=== PATIENT | female | born 1990 | race Two or more races ===

== ENCOUNTER 2016-07-17 17:45 | Emergency (ER) | payer MEDICAID ==
[~2016-07-17] VITALS: Ht 162.6 cm; Wt 63.5 kg
[2016-07-17 18:11] VITALS: BP 148/103
[2016-07-17 18:58] LABS: Basophils # (auto) 0 uL; Basophils % (auto) 0.4 % (0.0-2.0); Eosinophils # (auto) 0.1 uL; Eosinophils % (auto) 0.7 % (0.0-7.0); Hematocrit 36.1 % (36.0-46.0); Hemoglobin 12.4 g/dL (12.2-16.2); Lymphocytes # (auto) 1.3 uL; Lymphocytes % (auto) 15.1 % (10.0-50.0); Mean Corpuscular Hgb Conc. 34.4 g/dL (32.0-36.0); Mean Corpuscular Volume 84.1 fL (80.0-100.0); Mean Platelet Volume 10.9 fL (7.4-10.4); Monocytes # (auto) 1.1 uL; Monocytes % (auto) 13.1 % (0.0-12.0); Neutrophils # (auto) 6.2 uL; Neutrophils % (auto) 70.7 % (37.0-80.0); Platelet Count (auto) 226 10^3/uL (140-450); Red Cell Distribution Width 13.4 % (11.6-16.0); White Blood Cell 8.7 10^3/uL (4.4-10.8)
[2016-07-17 19:19] LABS: Albumin 3.8 g/dL (3.4-5.0); BUN/Creatinine Ratio 17.8; Calcium 8.5 mg/dL (8.5-10.1); Potassium 3.4 mmol/L (3.5-5.1)
[2016-07-17 19:22] LABS: Bilirubin, Total 0.4 mg/dL (0.2-1.0); Total Protein 8.6 g/dL (6.4-8.2)
[2016-07-17 19:59] LABS: Urine Bilirubin Negative (Negative); Urine Blood TRACE /uL (Negative); Urine Color Yellow (Yellow); Urine Glucose Normal (Normal); Urine Ketone Negative (Negative); Urine Mucus FEW (None Seen); Urine Nitrite Negative (Negative); Urine RBC 11 /hpf (0 - 4); Urine Squamous Epithelial Cell MOD /hpf (<5); Urine Urobilinogen Normal (Negative)
== END 2016-07-17 21:00 | disposition left against medical advice (07) ==
LOC: ER 17:45
DX: K62.5 Hemorrhage of anus and rectum (principal); Z53.21 Procedure and treatment not carried out due to patient leaving prior to being seen by health care provider
CPT/HCPCS: 36415; 80053; 81001; 81025; 85025

== ENCOUNTER 2024-07-16 22:17 | Inpatient (IN) | payer MEDICAID, OTHER ==
[~2024-07-16] VITALS: Ht 165.1 cm; Wt 86.4 kg
--- NOTE | 2024-07-16 22:29 | ED.PDOC ---
HPI Comments Shirley HPI: Poor Historian. * 34 y/o obese female is [id number] ambulance from home for c/o HTN and palpitations, today. * Patient reports history of HTN and taking her 20mg of Hydralazine daily and most recently this morning before she goes to work. * When patient returned back home she checked her blood pressure and noted elevation of 210/163. * In response to her elevated blood pressure, Patient took her mother's hydralazine dose which is 100 mg instead of 20 mg. * Patient then noted developing palpitations afterwards before calling EMS. * On scene, patient was found tachycardic at an initial rate of 155 and hypertensive at 168/90. * denies any history of anxiety, thyroid disease, or . * Denies any weight loss pills or [id number] herbal medications use * Vitals Temperature: Respiratory rate: SpO2: Heart rate: 155 (initial on scene) Blood pressure: 168/90 (initial on scene) Past Medical History: HTN Past Surgical History: denies REVIEW OF SYSTEMS: CONSTITUTIONAL: Denies acute: fever, diaphoresis, chills, generalized weakness. HEAD: Denies acute: headache, photophobia Eyes: Denies acute: Double vision, vision loss, eye pain, eye discharge. EARS: Denies acute: tinnitus, hearing loss, ear discharge, ear pain, THROAT: Denies acute: sore throat, swelling, difficulty swallowing , pain with swallowing, change in voice. NECK: Denies acute: neck pain, neck swelling, stiff neck. HEART: Denies acute : chest pain, LUNGS: Denies acute: SOB, wheezing, cough, hemoptysis ABDOMEN: Denies acute: abdominal pain, Nausea, Vomiting, diarrhea, melena , hematemesis, hematochezia SKIN: Denies acute: rash, redness, lesions, itchiness. EXTREMITIES: Denies acute: calf pain, numbness, tingling, weakness, denies pain in extremity. Denies acute: Low back pain. Neuro: Denies acute: focal neurological deficit, motor or sensory focal neurological deficit, tremors, seizure like activity, confusion, dizziness, change in mental status, loss of bowel or bladder function, cauda equina like symptoms. : Denies acute: dysuria, hematuria, flank pain, increase in urinary frequency. PSYCH: Denies acute: hallucination, suicidal ideation, homicidal ideation. FEMALE: Denies acute: abnormal vaginal bleeding, foul odor, unusual discharge. PHYSICAL EXAM: General: Mild acute distress, awake and alert. Head: normocephalic, atraumatic. Neck: supple, trachea is midline, no swelling. Throat: Normal phonation. Eyes:, no erythema, no purulent discharge, no proptosis, no icterus. Heart: regular tachycardic, no significant murmur appreciated. Lungs: no apparent respiratory distress, Able to speak in full sentences. No wheezing, no rhonchi, no crackles. No stridors Clear to auscultation bilaterally. Abdomen: non tender to palpation, non distended, soft, no guarding, no rebound, + bowel sounds. Neuro: Awake, Alert, oriented to name, self, situation, follows commands GCS=15. Speech is normal. Skin: no petechia, no purpura, no cyanosis, non-pale, not jaundice. Lower extremities: --no - Pitting edema no deformity, no focal swelling, no calf TTP. Makes eye contact. moves all four extremities. Face: no apparent facial droop. Ambulating in the ED independently. ED COURSE: Time Seen by MD: 22:10 Reviewed Notes: Nurses Notes, Frozen Yogurt Maker Notes, Medications, Allergies Allergies: Coded Allergies: NO KNOWN ALLERGIES (Unverified , 07/17/16) Information Source: Patient, Emergency Med Personnel Mode of Arrival: EMS Past Medical History PAST MEDICAL HISTORY: HTN Past Medical History (Other): obesity Surgical History: Denies all surgeries Family History Family History: Unknown Social History Smoker: Non-Smoker Alcohol: Denies ETOH Use Drugs: Denies Drug Use Lives In: Home Was a procedure done? Was a procedure done?: No CP Differential Dx Differential Diagnosis: A-fib, A-Flutter, Angina, Anxiety / Panic Attack, Atrial Dysrhythmia, Digoxin Toxicity, Electrolyte Disorder, Heart Failure, Hyperthyroidism, Hyperventilation, Hypoxia, MAT, [place], PAC's, PSVT, Pulmonary Embolus, PVC's, Renal Failure, Sinus Tachycardia, Torsades De Pointes, Ventricular Dysrhythmia, V-Fib, V-Tach, WPW X-Ray, Labs, Meds, VS Vital Signs Date Time Temp Pulse Resp B/P (MAP) Pulse Ox O2 Delivery O2 Flow Rate FiO2 07/16/24 23:20 123 07/16/24 22:40 98.2 126 20 132/80 (97) 99 98.2 07/16/24 22:22 129 07/16/24 22:21 97.7 133 20 163/84 (110) 99 97.7 Lab Test 07/16/24 23:23 07/16/24 22:35 07/16/24 22:25 Range/Units Troponin I High Sensitivity 51 *H 19 </=34 ng/L White Blood Count 15.3 H 4.4-10.8 10^3/uL Red Blood Count 4.42 4.0-5.20 10^6/uL Hemoglobin 12.6 12.2-16.2 g/dL Hematocrit 37.3 36.0-46.0 % Mean Corpuscular Volume 84.3 80.0-100.0 fL Mean Corpuscular Hemoglobin 28.5 28.0-32.0 pg Mean Corpuscular Hemoglobin Concent 33.8 32.0-36.0 g/dL Red Cell Distribution Width 14.2 11.8-14.3 % Platelet Count 243 140-450 10^3/uL Mean Platelet Volume 10.1 6.9-10.8 fL Neutrophils (%) (Auto) 71.6 37.0-80.0 % Lymphocytes (%) (Auto) 20.9 10.0-50.0 % Monocytes (%) (Auto) 5.4 0.0-12.0 % Eosinophils (%) (Auto) 1.2 0.0-7.0 % Basophils (%) (Auto) 0.9 0.0-2.0 % Neutrophils # (Auto) 10.9 H 1.6-8.6 10 ^3/uL Lymphocytes # (Auto) 3.2 0.4-5.4 10 ^3/uL Monocytes # (Auto) 0.8 0-1.3 10 ^3/uL Eosinophils # (Auto) 0.2 0-0.8 10 ^3/uL Basophils # (Auto) 0.1 0-0.2 10 ^3/uL Nucleated Red Blood Cells 0.0 % D-Dimer, Quantitative 0.47 0.0-0.49 mg/L FEU Sodium Level 139 136-145 mmol/L Potassium Level 3.4 L 3.5-5.1 mmol/L Chloride Level 109 H 98-107 mmol/L Carbon Dioxide Level 21 20-31 mmol/L Anion Gap 9 5-15 Blood Urea Nitrogen 11 9-23 mg/dL Creatinine 0.79 0.550-1.02 mg/dL Glomerular Filtration Rate Calc 101 >90 mL/min BUN/Creatinine Ratio 13.9 10.0-20.0 Serum Glucose 119 H 74-106 mg/dL Lactic Acid Level 1.6 0.4-2.0 mmol/L Calcium Level 9.8 8.7-10.4 mg/dL Magnesium Level 1.9 1.6-2.6 mg/dL Total Bilirubin 0.3 0.2-1.0 mg/dL Aspartate Amino Transferase (AST) 114 H 13-40 U/L Alanine Aminotransferase (ALT) 186 H 7-40 U/L Alkaline Phosphatase 85 46-116 U/L B-Type Natriuretic Peptide 11.38 0-100 pg/mL Total Protein 8.5 H 5.7-8.2 g/dL Albumin 4.9 H 3.2-4.8 g/dL Thyroid Stimulating Hormone (TSH) 1.86 0.55-4.78 uIU/mL Urine Color Dark-yellow Yellow Urine Clarity Turbid H Clear Urine pH 5.5 5.0-9.0 Urine Specific [place] 1.021 1.001-1.035 Urine Protein 1+ H Negative Urine Ketones Negative Negative Urine Blood Negative Negative /uL Urine Nitrite Negative Negative Urine Bilirubin Negative Negative Urine Urobilinogen Normal Negative mg/dL Urine Leukocyte Esterase Negative Negative /uL Urine RBC 1 0 - 4 /hpf Urine Microscopic WBC 8 H 0-5 /HPF Urine Squamous Epithelial Cells Few <5 /hpf Urine Bacteria Few H None Seen /hpf Urine Hyaline Casts Few 0 - 2 /lpf Urine Mucus Few None Seen Urine Glucose 1+ H Normal mg/dL Urine Test Negative Negative Urine Opiates Screen Neg NEGATIVE Urine Fentanyl Screen Neg NEGATIVE Urine Barbiturates Screen Neg NEGATIVE Urine Phencyclidine Screen Neg NEGATIVE Urine Amphetamines Screen Neg NEGATIVE Urine Benzodiazepines Screen Neg NEGATIVE Urine Cocaine Screen Neg NEGATIVE Urine Cannabinoids Screen Neg NEGATIVE Current Medications Medications (Trade) Dose Ordered Sig/Rimma Route Start Time Stop Time Status Last Admin Sodium Chloride 1,000 ml @ 1,000 mls/hr Q1H ONCE IV 07/16/24 22:30 07/16/24 23:29 DC 07/16/24 22:52 Lorazepam (Ativan Inj) 1 mg ONCE ONCE IV 07/16/24 22:30 07/16/24 22:31 DC 07/16/24 22:[address] [address] Ph: [phone] DIAGNOSTIC IMAGING Diagnostic Imaging Report : [id number] Signed PATIENT: MINDY SOSA ACCT: [id number] UNIT: [id number] : 1990 LOC: ER ROOM / BED: / AGE / SEX: 34 / F ADM STATUS: REG ER SERVICE 23 ORDERING PHYSICIAN: MIRANDA WILSON DO PROCEDURE(s): CXRP - CHEST PORTABLE REASON: tachy ORDER NUMBER(s): [id number], ACCESSION NUMBER(s): [id number] CHEST RADIOGRAPH Indication: tachy Technique: Single frontal view of the chest was obtained COMPARISON: None FINDINGS: A radiopaque foreign body noted overlying mid chest. Lines and Tubes: None Lungs: Clear Pleura: No effusion. No pneumothorax. Cardiomediastinal contours: Unremarkable Bones: Unremarkable IMPRESSION: No cardiopulmonary abnormality. ATED BY: AQUILES RICK MD DICTATED DATE/TIME: 07/16/242321 SIGNED BY: AQUILES RICK MD SIGNED DATE/TIME: 07/16/242321 CC: Time of 1ST Reevaluation: 22:10 Reevaluation 1ST: Unchanged Patient Education/Counseling: Diagnosis, Treatment Family Education/Counseling: No Family Present Comments Patient presented with the above HPI. Cardiac workup was initiated. patient was found with the above mentioned diagnosis. the following medications were ordered: please refer to order lists of meds and tests obtained by myself Dr. Wilson. Patient ED course and VS have been stabilized. Patient has been reassessed in the ED and remained in a stable condition. Pertinent incidental findings were discussed with the patient and/or family. Patient/family voices understanding and is agreeable with plan. Patient has been observed in the ED adequate length of time to insure improvement/stability. Escalation of care considered: Consideration of escalation to observation or admission Patient was ADMITTED to the medicine team for further evaluation and treatment of their presentation. Sepsis workup was initiated. I was told that the admitting team canceled the sepsis workup. All the reports of any imaging studies that were ordered by myself were reviewed by myself. Departure 1 Departure Time of Disposition: 23:27 Impression: Primary Impression: Sepsis Additional Impressions: UTI (urinary tract infection) Tachycardia Hypertension Leukocytosis T wave inversion in EKG Elevated troponin Elevated LFTs Disposition: ADMITTED INPATIENT Admit to: Tele Condition: Guarded Discharged With: Self Critical Care Note Critical Care Time?: Yes (1 hr-critical care time only) Heart Score Heart Score: Heart Score Response (Comments) Value History Slightly Suspicious [address]-Deviation 2 Age <45 0 Risk Factors 1 or 2 risk factors 1 Troponin 1-2 x's Normal limit 1 Total 4 I personally scribed for MIRANDA WILSON DO ([email or web address]) on 07/16/24 at 22:29. Electronically submitted by Luis Castillo ([email or web address]). MIRANDA WILSON DO Jul 16, 2024 22:29
[2024-07-16 22:51] LABS: Basophils # (auto) 0.1 10 ^3/uL (0-0.2); Basophils % (auto) 0.9 % (0.0-2.0); Eosinophils # (auto) 0.2 10 ^3/uL (0-0.8); Eosinophils % (auto) 1.2 % (0.0-7.0); Hematocrit 37.3 % (36.0-46.0); Hemoglobin 12.6 g/dL (12.2-16.2); Lymphocytes # (auto) 3.2 10 ^3/uL (0.4-5.4); Lymphocytes % (auto) 20.9 % (10.0-50.0); Mean Corpuscular Hemoglobin 28.5 pg (28.0-32.0); Mean Corpuscular Hgb Conc. 33.8 g/dL (32.0-36.0); Mean Corpuscular Volume 84.3 fL (80.0-100.0); Monocytes # (auto) 0.8 10 ^3/uL (0-1.3); Monocytes % (auto) 5.4 % (0.0-12.0); Neutrophils # (auto) 10.9 10 ^3/uL (1.6-8.6); Neutrophils % (auto) 71.6 % (37.0-80.0); Platelet Count (auto) 243 10^3/uL (140-450); Red Blood Cells 4.42 10^6/uL (4.0-5.20); Red Cell Distribution Width 14.2 % (11.8-14.3); White Blood Cell 15.3 10^3/uL (4.4-10.8)
[2024-07-16] MEDS: SODIUM CHLORIDE 0.9% 1,000 ML IV ONE (22:52)
[2024-07-16] MEDS: LORazepam 2MG/ML-1ML VIAL IV ONE (22:52)
[2024-07-16 22:56] LABS: Urine Bacteria FEW /hpf (None Seen); Urine Blood Negative /uL (Negative); Urine Clarity Turbid (Clear); Urine Color Dark-Yellow (Yellow); Urine Hyaline Cast FEW /lpf (0 - 2); Urine Mucus FEW (None Seen); Urine Protein, UAD 1+ (Negative); Urine Specific Gravity 1.021 (1.001-1.035); Urine Squamous Epithelial Cell FEW /hpf (<5); Urine Urobilinogen Normal (Negative); Urine WBC 8 /HPF (0-5); Urine pH 5.5 (5.0-9.0)
[2024-07-16 23:05] LABS: Alkaline Phosphatase 85 U/L (46-116); Anion Gap 9 (5-15); BUN/Creatinine Ratio 13.9 (10.0-20.0); Bilirubin, Total 0.3 mg/dL (0.2-1.0); Blood Urea Nitrogen 11 mg/dL (9-23); Calcium 9.8 mg/dL (8.7-10.4); Carbon Dioxide 21 mmol/L (20-31); Magnesium 1.9 mg/dL (1.6-2.6); Sodium 139 mmol/L (136-145)
[2024-07-16 23:06] LABS: Alanine Aminotransferase 186 U/L (7-40); Albumin 4.9 g/dL (3.2-4.8); Aspartate Aminotransferase 114 U/L (13-40); Chloride 109 mmol/L (98-107); Glucose 119 mg/dL (74-106); Potassium 3.4 mmol/L (3.5-5.1); Total Protein 8.5 g/dL (5.7-8.2)
[2024-07-16 23:10] LABS: Amphetamine Screen, Urine Neg (NEGATIVE); Barbiturate Scree,Urine Neg (NEGATIVE); Benzodiazephine Screen, Urine Neg (NEGATIVE); Cannabinoid Screen, Urine Neg (NEGATIVE); Cocaine Screen, Urine Neg (NEGATIVE); Opiate Scree,Urine Neg (NEGATIVE); Phencyclidine Screen, Urine Neg (NEGATIVE)
[2024-07-16] MEDS: cefTRIAXone 1GM/50ML D5W 50 ML IV ONE (23:15)
--- NOTE | 2024-07-16 23:24 | DVH ---
CHEST RADIOGRAPH Indication: tachy Technique: Single frontal view of the chest was obtained COMPARISON: None FINDINGS: A radiopaque foreign body noted overlying mid chest. Lines and Tubes: None Lungs: Clear Pleura: No effusion. No pneumothorax. Cardiomediastinal contours: Unremarkable Bones: Unremarkable IMPRESSION: No cardiopulmonary abnormality.
[2024-07-17] MEDS ORDERED: NITROGLYCERIN 0.4 MG SL TAB SL PRN
[2024-07-17] MEDS ORDERED: MORPHINE SULFATE INJ 2 MG/ml SYRG IV PRN
[2024-07-17 00:30] VITALS: PULSE 127; RESP 20; O2SAT 95
--- NOTE | 2024-07-17 00:39 | DVHHP2 ---
History of Present Illness Reason for Visit: Palpitations History of Present Illness 34-year-old female presents for evaluation of palpitations. Patient reports earlier today having high blood pressure in the 200s. She developed mild chest pain. She states that she accidentally took one of her mom's hydralazine. She reports that shortly after she felt palpitations and felt blushed. Denies shortness or breath. No other acute complaints reported. Past Medical History Hypertension Past Surgical History Denies Family History Noncontributory Smoke: No ALCOHOL: none Drugs: None Lives: with Family Review of Systems Review of Systems Review of systems are currently negative otherwise addressed in HPI. Allergies: Coded Allergies: NO KNOWN ALLERGIES (Unverified , 07/17/16) Medications Current Medications Medications Dose Ordered Sig/Rimma Route Start Time Stop Time Status Last Admin Dose Admin Nitroglycerin 0.4 mg Q5MINP PRN SL 07/17/24 00:00 Morphine Sulfate 2 mg Q30M PRN IV 07/17/24 00:00 Lisinopril 20 mg DAILY PO 07/17/24 10:00 Exam Vital Signs Vital Signs Date Time Temp Pulse Resp B/P (MAP) Pulse Ox O2 Delivery O2 Flow Rate FiO2 07/17/24 00:30 127 20 95 Room Air* 0 21 07/16/24 22:40 98.2 132/80 (97) 98.2 Exam Gen: 34-year-old female in mild distress Skin: Warm, dry, normal color and texture, no rash. HEENT: Normocephalic atraumatic, mucous membranes moist and pink. Neck: Cervical and supraclavicular nodes normal without enlargement, trachea is midline, thyroid gland is normal without masses. Pulmonary: Clear to auscultation and percussion bilaterally. Cardiac: Sinus tachycardia Abdomen: Soft, nontender, nondistended, bowel sounds present all 4 quadrants, no guarding, no rigidity, no organomegaly. Extremities: No cyanosis, clubbing, no edema Neuro: Cranial nerves II through XII grossly intact, normal affect and speech, no focal motor deficits. Labs/Xrays ORDERING PHYSICIAN: MIRANDA WILSON DO PROCEDURE(s): CXRP - CHEST PORTABLE REASON: tachy ORDER NUMBER(s): [id number], ACCESSION NUMBER(s): [id number] CHEST RADIOGRAPH Indication: tachy Technique: Single frontal view of the chest was obtained COMPARISON: None FINDINGS: A radiopaque foreign body noted overlying mid chest. Lines and Tubes: None Lungs: Clear Pleura: No effusion. No pneumothorax. Cardiomediastinal contours: Unremarkable Bones: Unremarkable IMPRESSION: No cardiopulmonary abnormality. Labs Test 07/16/24 23:23 07/16/24 22:35 07/16/24 22:25 Range/Units Troponin I High Sensitivity 51 *H </=34 ng/L White Blood Count 15.3 H 4.4-10.8 10^3/uL Red Blood Count 4.42 4.0-5.20 10^6/uL Hemoglobin 12.6 12.2-16.2 g/dL Hematocrit 37.3 36.0-46.0 % Mean Corpuscular Volume 84.3 80.0-100.0 fL Mean Corpuscular Hemoglobin 28.5 28.0-32.0 pg Mean Corpuscular Hemoglobin Concent 33.8 32.0-36.0 g/dL Red Cell Distribution Width 14.2 11.8-14.3 % Platelet Count 243 140-450 10^3/uL Mean Platelet Volume 10.1 6.9-10.8 fL Neutrophils (%) (Auto) 71.6 37.0-80.0 % Lymphocytes (%) (Auto) 20.9 10.0-50.0 % Monocytes (%) (Auto) 5.4 0.0-12.0 % Eosinophils (%) (Auto) 1.2 0.0-7.0 % Basophils (%) (Auto) 0.9 0.0-2.0 % Neutrophils # (Auto) 10.9 H 1.6-8.6 10 ^3/uL Lymphocytes # (Auto) 3.2 0.4-5.4 10 ^3/uL Monocytes # (Auto) 0.8 0-1.3 10 ^3/uL Eosinophils # (Auto) 0.2 0-0.8 10 ^3/uL Basophils # (Auto) 0.1 0-0.2 10 ^3/uL Nucleated Red Blood Cells 0.0 % D-Dimer, Quantitative 0.47 0.0-0.49 mg/L FEU Sodium Level 139 136-145 mmol/L Potassium Level 3.4 L 3.5-5.1 mmol/L Chloride Level 109 H 98-107 mmol/L Carbon Dioxide Level 21 20-31 mmol/L Anion Gap 9 5-15 Blood Urea Nitrogen 11 9-23 mg/dL Creatinine 0.79 0.550-1.02 mg/dL Glomerular Filtration Rate Calc 101 >90 mL/min BUN/Creatinine Ratio 13.9 10.0-20.0 Serum Glucose 119 H 74-106 mg/dL Lactic Acid Level 1.6 0.4-2.0 mmol/L Calcium Level 9.8 8.7-10.4 mg/dL Magnesium Level 1.9 1.6-2.6 mg/dL Total Bilirubin 0.3 0.2-1.0 mg/dL Aspartate Amino Transferase (AST) 114 H 13-40 U/L Alanine Aminotransferase (ALT) 186 H 7-40 U/L Alkaline Phosphatase 85 46-116 U/L B-Type Natriuretic Peptide 11.38 0-100 pg/mL Total Protein 8.5 H 5.7-8.2 g/dL Albumin 4.9 H 3.2-4.8 g/dL Thyroid Stimulating Hormone (TSH) 1.86 0.55-4.78 uIU/mL Urine Color Dark-yellow Yellow Urine Clarity Turbid H Clear Urine pH 5.5 5.0-9.0 Urine Specific [place] 1.021 1.001-1.035 Urine Protein 1+ H Negative Urine Ketones Negative Negative Urine Blood Negative Negative /uL Urine Nitrite Negative Negative Urine Bilirubin Negative Negative Urine Urobilinogen Normal Negative mg/dL Urine Leukocyte Esterase Negative Negative /uL Urine RBC 1 0 - 4 /hpf Urine Microscopic WBC 8 H 0-5 /HPF Urine Squamous Epithelial Cells Few <5 /hpf Urine Bacteria Few H None Seen /hpf Urine Hyaline Casts Few 0 - 2 /lpf Urine Mucus Few None Seen Urine Glucose 1+ H Normal mg/dL Urine Test Negative Negative Urine Opiates Screen Neg NEGATIVE Urine Fentanyl Screen Neg NEGATIVE Urine Barbiturates Screen Neg NEGATIVE Urine Phencyclidine Screen Neg NEGATIVE Urine Amphetamines Screen Neg NEGATIVE Urine Benzodiazepines Screen Neg NEGATIVE Urine Cocaine Screen Neg NEGATIVE Urine Cannabinoids Screen Neg NEGATIVE Assessment/Plan Assessment/Plan Assessment Hypertensive urgency Mild troponin elevation, demand ischemia Hypokalemia Plan Admit the patient to telemetry to the hospitalist Echocardiogram pending As needed antihypertensives Continue treatment per orders. Plan discussed with: Patient My Orders Orders - AMIRA CAR Procedure Category Date Status Time Admit ADMIT 07/16/24 Transmitted 23:[address] [facility] 07/17/24 In Process Sublingual (Ntrostat 00:[address] [facility] 07/17/24 In Process Injection 00:00 Stat Ekg For Chest [facility] 07/16/24 In Process Pain 23:51 Notify Of Changes [facility] 07/16/24 In Process From Base 23:51 Axle Turner For [facility] 07/16/24 In Process 24 Hours 23:51 Emergency Dysrhythmia [facility] 07/16/24 In Process Protocol 23:51 Rhythm Strips Once [facility] 07/16/24 In Process Every Shift 23:51 Oxygen By Nasal RT 07/16/24 Transmitted Cannula 23:[address] [facility] 07/17/24 In Process (Zestril Tablet) 10:00 Basic Metabolic Panel LAB 07/18/24 Verified 04:00 Potassium Er Tablet [facility] 07/17/24 Verified (Klor-Con Tablet) 00:[address] [facility] 07/17/24 Verified (Zofran) 00:45 Complete Blood Count LAB 07/18/24 Verified 04:00 Cardiac DIET 07/17/24 Verified Diet-2gna,Lofat,Lochol Breakfast Echo 2d Mode Cardiac US 07/17/24 Verified DOP 00:32 Condition: Fair [facility] 07/17/24 Verified 00:[address] [facility] 07/17/24 Verified (Tylenol Tablet) 00:45 Bedrest With Bathroom [facility] 07/17/24 Verified Privileg 00:32 Date of Service: Jul 16, 2024 Billing Provider: AMIRA CAR Common Visit Codes: [id number] INP/OBS CARE (HIGH) AMIRA CAR Jul 17, 2024 00:39
[2024-07-17] MEDS ORDERED: ONDANSETRON HCL 4 MG/2 ML VIAL IV PRN (00:45)
[2024-07-17] MEDS ORDERED: ACETAMINOPHEN 325 MG TAB PO PRN (00:45)
[2024-07-17] MEDS: FAMOTIDINE (10MG/ML) 2ML VL IV ONE (01:07)
[2024-07-17] MEDS: POTASSIUM CHL 20 Meq TABLET PO ONE (01:07)
[2024-07-17] MEDS: LABETALOL HCL 20 MG/4 ML VL IV ONE (01:08)
--- NOTE | 2024-07-17 05:30 | ECG ---
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
--- NOTE | 2024-07-17 05:31 | ECG ---
[facility] Test Date: 2024-07-17 Test Time: 01:17:39 Pat Name: MINDY SOSA Department: ED Room: [address] [place] [address] A Gender: F Neon Sign Mechanic: LULÚ : 1990 Requested By: MIRANDA WILSON Order Number: [id number] Reading MD: Abhijeet Bacon Measurements Intervals [place] Rate: 113 P: 54 DC: 157 QRS: 32 QRSD: 98 T: -1 QT: 348 QTc: 478 Interpretive Statements Sinus tachycardia Borderline repolarization abnormality Borderline prolonged QT interval Electronically Signed On 07-18-2024 22:37:04 PDT by Abhijeet Bacon Please click the below link to view image of tracing.
--- NOTE | 2024-07-17 05:31 | ECG ---
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
[2024-07-17 08:44] LABS: Basophils # (auto) 0.1 10 ^3/uL (0-0.2); Basophils % (auto) 0.6 % (0.0-2.0); Eosinophils # (auto) 0.1 10 ^3/uL (0-0.8); Eosinophils % (auto) 0.7 % (0.0-7.0); Hematocrit 33.6 % (36.0-46.0); Hemoglobin 11.6 g/dL (12.2-16.2); Lymphocytes # (auto) 2.2 10 ^3/uL (0.4-5.4); Lymphocytes % (auto) 21.7 % (10.0-50.0); Mean Corpuscular Hemoglobin 28.8 pg (28.0-32.0); Mean Corpuscular Hgb Conc. 34.4 g/dL (32.0-36.0); Mean Corpuscular Volume 83.8 fL (80.0-100.0); Monocytes # (auto) 0.6 10 ^3/uL (0-1.3); Monocytes % (auto) 5.6 % (0.0-12.0); Neutrophils # (auto) 7.1 10 ^3/uL (1.6-8.6); Neutrophils % (auto) 71.4 % (37.0-80.0); Nucleated Red Blood Cells % 0.1 %; Platelet Count (auto) 225 10^3/uL (140-450); Red Blood Cells 4.01 10^6/uL (4.0-5.20); Red Cell Distribution Width 14.1 % (11.8-14.3)
[2024-07-17 09:06] LABS: Alkaline Phosphatase 80 U/L (46-116); Anion Gap 8 (5-15); BUN/Creatinine Ratio 12.2 (10.0-20.0); Calcium 9.4 mg/dL (8.7-10.4); Carbon Dioxide 24 mmol/L (20-31); Potassium 3.9 mmol/L (3.5-5.1); Sodium 141 mmol/L (136-145)
[2024-07-17 09:07] LABS: Albumin 4.6 g/dL (3.2-4.8); Bilirubin, Total 0.4 mg/dL (0.2-1.0)
[2024-07-17 09:08] LABS: Alanine Aminotransferase 175 U/L (7-40); Aspartate Aminotransferase 96 U/L (13-40); Blood Urea Nitrogen 9 mg/dL (9-23); Chloride 109 mmol/L (98-107); Glucose 107 mg/dL (74-106)
[2024-07-17] MEDS: LISINOPRIL 20 MG TAB PO SCH (10:28)
--- NOTE | 2024-07-17 11:16 | DVHINCON2 ---
PATRIA CHAVES [facility] 07/17/24 1116: Date Seen: Jul 17, 2024 Referring Physician MD Eugene Reason for Consultation Palpitations History of Present Illness This is a 34-year-old female who presented to the emergency room via EMS with a chief complaint of palpitations. The patient with a history of hypertension compliant on lisinopril 20 mg q.d. found her systolic blood pressure in the 210s mmHg last night for which she took her mother's hydralazine 100 mg p.o. x 1. Soon after she laid down on bed experiencing tingling of her feet extending to her head and associated with facial flushing and palpitations for which she called 911. Blood glucose level at the scene was 132 ng/dL. Per patient, she believes her blood pressure dropped too low causing the aforementioned symptoms. At time of assessment she was found in a sinus tachycardia rhythm in the 110s bpm denying any cardiac symptoms. Denies the intake of caffeinated drinks, energy drinks, or illicit drug use. States she is well hydrated. Multiple 12 lead electrocardiograms x3 revealed a sinus tachycardia rhythm up to the 120s bpm with T-wave inversion to lead three and early repolarization changes. Sig nificant medical history includes hypertension, fatty liver, and obesity. Past Medical History Past medical history reviewed. No other significant than mentioned above. Past Surgical History Past surgical history reviewed. No other significant than mentioned above. Family History Family history reviewed. Significant for mother with CAD including PCI with stents. Social History Denies the use of illicit drugs, alcohol, or tobacco use. Allergies: Coded Allergies: NO KNOWN ALLERGIES (Unverified , 07/17/16) Home Meds Home medications reviewed. Current Medications Current Medications Medications (Trade) Dose Ordered Sig/Rimma Route PRN Reason Start Time Stop Time Status Last Admin Nitroglycerin (Ntrostat Sublingual) 0.4 mg Q5MINP PRN SL FOR CHEST PAIN 07/17/24 00:00 Morphine Sulfate 2 mg Q30M PRN IV FOR CHEST PAIN 07/17/24 00:00 Lisinopril (Zestril Tablet) 20 mg DAILY PO 07/17/24 10:00 07/17/24 10:28 Ondansetron HCl (Zofran) 4 mg Q4HP PRN IV NAUSEA / VOMITING 07/17/24 00:45 Acetaminophen (Tylenol Tablet) 650 mg Q6HP PRN PO PAIN SCALE 1-3 OR TEMP>100.4 07/17/24 00:45 Review of Systems Constitutional: No symptom reported Ears, Nose, & Throat: No symptom reported Eyes: No symptom reported Neurological: No symptoms reported Pulmonary/Respiratory: No symptom reported Cardiovascular: Palpitations Gastrointestinal: No symptom reported Genitourinary: No symptom reported Musculoskeletal: No symptom reported Skin: No symptom reported Psychiatric: No symptom reported Endocrine: No symptom reported Hemotologic/Lymphatic: No symptom reported Vital Signs Vital Signs Date Time Temp Pulse Resp B/P (MAP) Pulse Ox O2 Delivery O2 Flow Rate FiO2 07/17/24 10:28 141/95 07/17/24 10:00 107 16 98 07/17/24 00:30 Room Air* 0 21 07/16/24 22:40 98.2 98.2 Physical Exam General Appearance: Cooperative. Well developed. Obese. In no acute distress Head Exam: Normal inspection Neck Exam: Normal inspection. Non-tender. Normal alignment Pulmonary/Respiratory: Chest non-tender. Clear bilateral breath sounds Cardiovascular/Chest: Regular rate and rhythm. S1, S2. Sinus tachycardia. T- wave inversion to lead three. No murmurs. No JVD. Peripheral Pulses: 2+ Radial (R). 2+ Radial (L). 2+ Pedal (R). 2+ Pedal (L) Abdominal Exam: Normal bowel sounds. Soft. Nontender. No hepatospenomegaly. No masses Ankle Exam: Negative ankle edema Lower extremities: Negative lower extremity edema Neuro/Mental Status: A&O x4. Coherent Thoughts/Psych: Normal thought pattern. Appropriate mood and affect. Good judgement and insight Appearance: In no acute distress Skin Exam: Normal inspection. Normal color. Warm. Dry Labs/Diagnostic Data Labs Test 07/17/24 10:44 07/17/24 08:35 07/16/24 22:35 07/16/24 22:25 Range/Units White Blood Count 10.0 # 4.4-10.8 10^3/uL Red Blood Count 4.01 4.0-5.20 10^6/uL Hemoglobin 11.6 L 12.2-16.2 g/dL Hematocrit 33.6 L 36.0-46.0 % Mean Corpuscular Volume 83.8 80.0-100.0 fL Mean Corpuscular Hemoglobin 28.8 28.0-32.0 pg Mean Corpuscular Hemoglobin Concent 34.4 32.0-36.0 g/dL Red Cell Distribution Width 14.1 11.8-14.3 % Platelet Count 225 140-450 10^3/uL Mean Platelet Volume 9.7 6.9-10.8 fL Neutrophils (%) (Auto) 71.4 37.0-80.0 % Lymphocytes (%) (Auto) 21.7 10.0-50.0 % Monocytes (%) (Auto) 5.6 0.0-12.0 % Eosinophils (%) (Auto) 0.7 0.0-7.0 % Basophils (%) (Auto) 0.6 0.0-2.0 % Neutrophils # (Auto) 7.1 1.6-8.6 10 ^3/uL Lymphocytes # (Auto) 2.2 0.4-5.4 10 ^3/uL Monocytes # (Auto) 0.6 0-1.3 10 ^3/uL Eosinophils # (Auto) 0.1 0-0.8 10 ^3/uL Basophils # (Auto) 0.1 0-0.2 10 ^3/uL Nucleated Red Blood Cells 0.1 % Sodium Level 141 136-145 mmol/L Potassium Level 3.9 3.5-5.1 mmol/L Chloride Level 109 H 98-107 mmol/L Carbon Dioxide Level 24 20-31 mmol/L Anion Gap 8 5-15 Blood Urea Nitrogen 9 9-23 mg/dL Creatinine 0.74 0.550-1.02 mg/dL Glomerular Filtration Rate Calc 109 >90 mL/min BUN/Creatinine Ratio 12.2 10.0-20.0 Serum Glucose 107 H 74-106 mg/dL Calcium Level 9.4 8.7-10.4 mg/dL Total Bilirubin 0.4 0.2-1.0 mg/dL Aspartate Amino Transferase (AST) 96 H 13-40 U/L Alanine Aminotransferase (ALT) 175 H 7-40 U/L Alkaline Phosphatase 80 46-116 U/L Total Protein 8.0 5.7-8.2 g/dL Albumin 4.6 3.2-4.8 g/dL D-Dimer, Quantitative 0.47 0.0-0.49 mg/L FEU Lactic Acid Level 1.6 0.4-2.0 mmol/L Magnesium Level 1.9 1.6-2.6 mg/dL B-Type Natriuretic Peptide 11.38 0-100 pg/mL Thyroid Stimulating Hormone (TSH) 1.86 0.55-4.78 uIU/mL Urine Color Dark-yellow Yellow Urine Clarity Turbid H Clear Urine pH 5.5 5.0-9.0 Urine Specific [place] 1.021 1.001-1.035 Urine Protein 1+ H Negative Urine Ketones Negative Negative Urine Blood Negative Negative /uL Urine Nitrite Negative Negative Urine Bilirubin Negative Negative Urine Urobilinogen Normal Negative mg/dL Urine Leukocyte Esterase Negative Negative /uL Urine RBC 1 0 - 4 /hpf Urine Microscopic WBC 8 H 0-5 /HPF Urine Squamous Epithelial Cells Few <5 /hpf Urine Bacteria Few H None Seen /hpf Urine Hyaline Casts Few 0 - 2 /lpf Urine Mucus Few None Seen Urine Glucose 1+ H Normal mg/dL Urine Test Negative Negative Urine Opiates Screen Neg NEGATIVE Urine Fentanyl Screen Neg NEGATIVE Urine Barbiturates Screen Neg NEGATIVE Urine Phencyclidine Screen Neg NEGATIVE Urine Amphetamines Screen Neg NEGATIVE Urine Benzodiazepines Screen Neg NEGATIVE Urine Cocaine Screen Neg NEGATIVE Urine Cannabinoids Screen Neg NEGATIVE Assessment Palpitations rule out cardiac arrhythmias Hypertensive emergency, resolved NSTEMI, likely type 2 secondary to above Rule out structural heart disease Obesity Plan/Recommendation (Dr. Ellison) The patient with palpitations and associated sinus tachycardia presents with 12- lead electrocardiograms revealing a sinus rhythm without evidence of ischemia or arrhythmias. Sinus tachycardia could be secondary to vasodilator use which could cause reflex tachycardia as a side effect due to the body's compensatory response as she self-administered hydralazine 100 mg at once. Other etiologies include infectious processes, sleep apnea, or anxiety. Consider an event monitor and/or treadmill stress test as outpatient if deemed to be necessary. In the setting of an unremarkable transthoracic echocardiogram there is no further cardiac workup indicated at this time. Kindly call if in need to re-consult. Thank you for allowing us to participate in this patient's care. This medical document was created using an electronic medical record system with voice recognition software and computerized dictation system. Although this document has been carefully reviewed, there might still be some phonetic and typographical errors. Occasional wrong-word or ``sound-alike substitutions may have occurred due to the inherent limitations of voice recognition software. These areas are purely typographical due to imperfections of the software programs and do not reflect any compromise in the patient's medical care. Please read the chart carefully and recognize, using context, where these substitutions have occurred. Plan discussed with: Patient, Other NYHA Physical activity limitations: NA Date of Service: Jul 17, 2024 Billing Provider: PATRIA CHAVES Cardiology Common Codes: [id number] INP/OBS CARE (High) MI PIERRE DO 07/17/24 1945: Date Seen: Jul 17, 2024 Allergies: Coded Allergies: NO KNOWN ALLERGIES (Unverified , 07/17/16) Plan/Recommendation The patient was seen and discussed with Patria Chaves NP. I agree with her Assessment and Plan, which was formulated with me. Plan discussed with: Patient Date of Service: Jul 17, 2024 Billing Provider: MI PIERRE DO Cardiology Common Codes: [id number] INP/OBS CARE (High) PATRIA CHAVES Jul 17, 2024 11:16 MI PIERRE DO Jul 17, 2024 19:45
[2024-07-17] MEDS: SODIUM CHLORIDE 0.9% 1,000 ML IV ONE (12:28)
[2024-07-17] MEDS: cefTRIAXone 1GM/50ML D5W 50 ML IV ONE (12:28)
--- NOTE | 2024-07-17 14:55 | DVHSR ---
APPROVED REPORT EXAM: Two-dimensional and M-mode echocardiogram with Doppler and color Doppler. Blood Pressure: 136/86 mmHg INDICATION hypertensive urgency RISK FACTORS Obesity: Height: 5'5, Weight: 190 DIMENSIONS LVDd4.9 (3.8-5.7cm)LA (2D)3.1 (1.9-4.0cm)Aortic Root3.2 (2.0-3.7cm) LVDs3.5 (2.5-4.0cm)LA (MM) (1.9-4.0cm)Aortic Cusp Exc1.7 (1.5-2.0cm) EF (%) 55.0 (55-70%)Rt. Atrium3.6 (1.9-4.0cm)Asc. Aorta cm IVSd0.8 (0.7-1.1cm)RV (D)3.1 (1.8-2.4cm) PWd1.0 (0.7-1.1cm) Mitral Valve MitralMitral Stenosis E wave0.95m/sMV Mean GR.mmHg A wave1.40m/sMV Peak GR.mmHg E/A ratio0.72D MVAcm2 Aortic Valve Aortic ValveAortic Stenosis V11.15m/[place] Mean GR.8mmHg V21.74m/[place] Peak GR.12mmHg LVOT Diameter1.9 (1.8-2.4cm)Doppler AVA1.87cm2 Other Information Quality : Technically LimitedRhythm : Technically limited study due to body habitus. Conclusion Normal biventricular size and systolic function. LVEF 65-70%. Normal wall motion. No significant valvular disease. Normal IVC. No pericardial effusion.
[2024-07-17] MEDS: MAGNESIUM SULFATE 1GM/100ML 100 ML IV ONE (14:57)
--- NOTE | 2024-07-17 15:27 | DVHPNRES ---
Progress Note Date Seen: Jul 17, 2024 Resident Creating Document: KATERINA REYNAGA RESIDENT Has the PT tested + for MRSA If YES, has PT been informed?: No Medical Necessity Reason Pt with a Central, PICC or Fol: No Subjective Review of Systems 34-year-old female with past medical history of hypertension, fatty liver, and obesity who presented to the emergency room with a chief complaint of palpitations. The patient with a history of hypertension compliant on lisinopril 20 mg q.d. found her systolic blood pressure in the 210s mmHg last night for which she took her mother's hydralazine 100 mg p.o. x 1. Soon after she developed facial flushing and palpitations. per patient, she believes her blood pressure dropped too low causing these symptoms, she reports having similar episodes of palpitations in the past but never like this. At time of assessment she was found in a sinus tachycardia rhythm in the 110s bpm denying any cardiac symptoms. Denies the intake of caffeinated drinks, energy drinks, or illicit drug use. Multiple 12 lead electrocardiograms x3 revealed a sinus tachycardia rhythm up to the 120s bpm with T-wave inversion to lead three. follow up on echo results. troponins trending up. Review of Systems: HEENT:Normal, CVS:Normal, RESPIRATORY:Normal, GI:Normal, :Normal, MSK:Normal, NEURO:Normal Objective vital signs Vital Sign Date Time Temp Pulse Resp B/P (MAP) Pulse Ox O2 Delivery O2 Flow Rate FiO2 07/17/24 10:28 141/95 07/17/24 10:00 107 16 98 07/17/24 00:30 Room Air* 0 21 07/16/24 22:40 98.2 98.2 Total Intake and Output 07/16/24 07/16/24 07/17/24 15:00 23:00 07:00 Intake Total 1000 ml Balance 1000 ml medications Current Medications Medications Dose Ordered Sig/Rimma Route Start Time Stop Time Status Last Admin Dose Admin Nitroglycerin 0.4 mg Q5MINP PRN SL 07/17/24 00:00 Morphine Sulfate 2 mg Q30M PRN IV 07/17/24 00:00 Lisinopril 20 mg DAILY PO 07/17/24 10:00 07/17/24 10:28 20 MG Ondansetron HCl 4 mg Q4HP PRN IV 07/17/24 00:45 Acetaminophen 650 mg Q6HP PRN PO 07/17/24 00:45 Examination: GENERAL:Normal, HEENT:Normal, NECK:Normal, LUNGS:Normal, CVS:Abnormal, ABDOMEN:Normal, MSK:Normal, SKIN:Normal, NEURO:Normal, :Normal laboratory and microbiology Laboratory Tests 07/17/24 08:35 Test 07/17/24 08:35 Range/Units Serum Glucose 107 H 74-106 mg/dL Problem List/Assessment/Plan Problem List/Assessment/Plan #Palpitationsrule out ?cardiac arrhythmias #Hypertensive emergency, resolved #NSTEMI, likely type 2 secondary to above #Rule out structural heart disease #Type 1 Obesity #Asymtomatic bacteriuria #Anxiety Plan/Recommendation -admit to telemetry -EKG unremarkable -Cardiology consult -lisinopril 20 mg daily -cardiac diet case discussed with Dr. Jin goals of care discussed with the patient fro 31 min code status: full code Plan discussed with: Patient My Orders My Orders Orders - KATERINA REYNAGA Procedure Category Date Status Time Electrocardigram EKG 07/17/24 Logged 10:23 Electrocardigram EKG 07/17/24 Logged 11:23 Date of Service: Jul 17, 2024 Billing Provider: YRN JIN MD Common Visit Codes: [id number] INP/OBS CARE(HIGH) KATERINA REYNAGA Jul 17, 2024 15:27 YRN JIN MD Jul 19, 2024 08:30
[2024-07-17 21:14] VITALS: BP 133/92; PULSE 103; RESP 13; TEMP 97.8; O2SAT 95
--- NOTE | 2024-07-18 06:54 | DVHDSRES ---
Discharge Summary Date of Admission Resident Creating Document: KATERINA RYENAGA RESIDENT Jul 16, 2024 at 23:51 Date of Discharge: Jul 17, 2024 Labs/Diagnostic Data: Laboratory Results Test 07/17/24 13:27 07/17/24 08:35 07/16/24 22:35 07/16/24 22:25 Troponin I High Sensitivity 683 ng/L (</=34) White Blood Count 10.0 10^3/uL (4.4-10.8) Red Blood Count 4.01 10^6/uL (4.0-5.20) Hemoglobin 11.6 g/dL (12.2-16.2) Hematocrit 33.6 % (36.0-46.0) Mean Corpuscular Volume 83.8 fL (80.0-100.0) Mean Corpuscular Hemoglobin 28.8 pg (28.0-32.0) Mean Corpuscular Hemoglobin Concent 34.4 g/dL (32.0-36.0) Red Cell Distribution Width 14.1 % (11.8-14.3) Platelet Count 225 10^3/uL (140-450) Mean Platelet Volume 9.7 fL (6.9-10.8) Neutrophils (%) (Auto) 71.4 % (37.0-80.0) Lymphocytes (%) (Auto) 21.7 % (10.0-50.0) Monocytes (%) (Auto) 5.6 % (0.0-12.0) Eosinophils (%) (Auto) 0.7 % (0.0-7.0) Basophils (%) (Auto) 0.6 % (0.0-2.0) Neutrophils # (Auto) 7.1 10 ^3/uL (1.6-8.6) Lymphocytes # (Auto) 2.2 10 ^3/uL (0.4-5.4) Monocytes # (Auto) 0.6 10 ^3/uL (0-1.3) Eosinophils # (Auto) 0.1 10 ^3/uL (0-0.8) Basophils # (Auto) 0.1 10 ^3/uL (0-0.2) Nucleated Red Blood Cells 0.1 % Sodium Level 141 mmol/L (136-145) Potassium Level 3.9 mmol/L (3.5-5.1) Chloride Level 109 mmol/L (98-107) Carbon Dioxide Level 24 mmol/L (20-31) Anion Gap 8 (5-15) Blood Urea Nitrogen 9 mg/dL (9-23) Creatinine 0.74 mg/dL (0.550-1.02) Glomerular Filtration Rate Calc 109 mL/min (>90) BUN/Creatinine Ratio 12.2 (10.0-20.0) Serum Glucose 107 mg/dL (74-106) Calcium Level 9.4 mg/dL (8.7-10.4) Total Bilirubin 0.4 mg/dL (0.2-1.0) Aspartate Amino Transferase (AST) 96 U/L (13-40) Alanine Aminotransferase (ALT) 175 U/L (7-40) Alkaline Phosphatase 80 U/L (46-116) Total Protein 8.0 g/dL (5.7-8.2) Albumin 4.6 g/dL (3.2-4.8) D-Dimer, Quantitative 0.47 mg/L FEU (0.0-0.49) Lactic Acid Level 1.6 mmol/L (0.4-2.0) Magnesium Level 1.9 mg/dL (1.6-2.6) B-Type Natriuretic Peptide 11.38 pg/mL (0-100) Thyroid Stimulating Hormone (TSH) 1.86 uIU/mL (0.55-4.78) Urine Color Dark-yellow (Yellow) Urine Clarity Turbid (Clear) Urine pH 5.5 (5.0-9.0) Urine Specific [place] 1.021 (1.001-1.035) Urine Protein 1+ (Negative) Urine Ketones Negative (Negative) Urine Blood Negative /uL (Negative) Urine Nitrite Negative (Negative) Urine Bilirubin Negative (Negative) Urine Urobilinogen Normal mg/dL (Negative) Urine Leukocyte Esterase Negative /uL (Negative) Urine RBC 1 /hpf (0 - 4) Urine Microscopic WBC 8 /HPF (0-5) Urine Squamous Epithelial Cells Few /hpf (<5) Urine Bacteria Few /hpf (None Seen) Urine Hyaline Casts Few /lpf (0 - 2) Urine Mucus Few (None Seen) Urine Glucose 1+ mg/dL (Normal) Urine Test Negative (Negative) Urine Opiates Screen Neg (NEGATIVE) Urine Fentanyl Screen Neg (NEGATIVE) Urine Barbiturates Screen Neg (NEGATIVE) Urine Phencyclidine Screen Neg (NEGATIVE) Urine Amphetamines Screen Neg (NEGATIVE) Urine Benzodiazepines Screen Neg (NEGATIVE) Urine Cocaine Screen Neg (NEGATIVE) Urine Cannabinoids Screen Neg (NEGATIVE) Other Laboratory Tests 07/17/24 08:35 Brief Hx & Hospital Course: HPI: 34-year-old female with past medical history of hypertension, fatty liver, and obesity who presented to the emergency room with a chief complaint of palpitations. The patient with a history of hypertension compliant on lisinopril 20 mg q.d. found her systolic blood pressure in the 210s mmHg last night for which she took her mother's hydralazine 100 mg p.o. x 1. Hospital course: Per patient, she believes her blood pressure dropped too low causing these symptoms, she reports having similar episodes of palpitations in the past but never like this. At time of assessment she was found in a sinus tachycardia rhythm in the 110s bpm denying any cardiac symptoms. Denies the intake of caffeinated drinks, energy drinks, or illicit drug use. Multiple 12 lead electrocardiograms x3 revealed a sinus tachycardia rhythm up to the 120s bpm with T-wave inversion to lead three. Echocardiogram showed Normal biventricular size and systolic function. LVEF 65-70%, normal wall motion, no significant valvular disease no pericardial effusion.Patient was advised to stay for observation and encouraged to stay for further treatment/stabilization. Patient advised of the risks of leaving AMA. Patient verbalized understanding. Patient encouraged to return to the ER if symptoms do not improve or worsen. Operations or Procedures [place] [id number] Ph: [phone] DIAGNOSTIC IMAGING Diagnostic Imaging Report : [id number] Signed PATIENT: MINDY SOSA ACCT: [id number] UNIT: [id number] : 1990 LOC: OVERFLOW ROOM / BED: [address] [place] [address] AGE / SEX: 34 / F ADM STATUS: ADM IN SERVICE ORDERING PHYSICIAN: AMIRA CAR PROCEDURE(s): ECIDC - ECHO 2D MODE CARDIAC DOP REASON: Hypertensive urgency ORDER NUMBER(s): [id number], ACCESSION NUMBER(s): [id number] APPROVED REPORT EXAM: Two-dimensional and M-mode echocardiogram with Doppler and color Doppler. Blood Pressure: 136/86 mmHg INDICATION hypertensive urgency RISK FACTORS Obesity: Height: 5'5, Weight: 190 DIMENSIONS LVDd 4.9 (3.8-5.7cm) LA (2D) 3.1 (1.9-4.0cm) Aortic Root 3.2 (2.0- 3.7cm) LVDs 3.5 (2.5-4.0cm) LA (MM) (1.9-4.0cm) Aortic Cusp Exc 1.7 (1.5- 2.0cm) EF (%) 55.0 (55-70%) Rt. Atrium 3.6 (1.9-4.0cm) Asc. Aorta cm IVSd 0.8 (0.7-1.1cm) RV (D) 3.1 (1.8-2.4cm) PWd 1.0 (0.7-1.1cm) Mitral Valve Mitral Mitral Stenosis E wave 0.95m/s MV Mean GR. mmHg A wave 1.40m/s MV Peak GR. mmHg E/A ratio 0.7 2D MVA cm2 Aortic Valve Aortic Valve Aortic Stenosis V1 1.15m/s AO Mean GR. 8mmHg V2 1.74m/s AO Peak GR. 12mmHg LVOT Diameter 1.9 (1.8-2.4cm) Doppler MYKEL 1.87cm2 Other Information Quality : Technically Limited Rhythm : Technically limited study due to body habitus. Conclusion Normal biventricular size and systolic function. LVEF 65-70%. Normal wall motion. No significant valvular disease. Normal IVC. No pericardial effusion. SIGNED BY: MI PIERRE DO SIGNED DATE/TIME: 07/17/24 1973 CC: [address] [address] Ph: [phone] DIAGNOSTIC IMAGING Diagnostic Imaging Report : [id number] Signed PATIENT: MINDY SOSA ACCT: [id number] UNIT: [id number] : 1990 LOC: ER ROOM / BED: / AGE / SEX: 34 / F ADM STATUS: REG ER SERVICE [id number] ORDERING PHYSICIAN: MIRANDA WILSON DO PROCEDURE(s): CXRP - CHEST PORTABLE REASON: tachy ORDER NUMBER(s): [id number], ACCESSION NUMBER(s): [id number] CHEST RADIOGRAPH Indication: tachy Technique: Single frontal view of the chest was obtained COMPARISON: None FINDINGS: A radiopaque foreign body noted overlying mid chest. Lines and Tubes: None Lungs: Clear Pleura: No effusion. No pneumothorax. Cardiomediastinal contours: Unremarkable Bones: Unremarkable IMPRESSION: No cardiopulmonary abnormality. ATED BY: AQUILES RICK MD DICTATED DATE/TIME: 07/16/242321 SIGNED BY: AQUILES RICK MD SIGNED DATE/TIME: 07/16/242321 CC: Condition at Discharge: Undetermined Final Diagnosis/Problems List #Palpitationsrule out ?cardiac arrhythmias #Hypertensive emergency, resolved #NSTEMI, likely type 2 secondary to above #Rule out structural heart disease #Type 1 Obesity #Asymtomatic bacteriuria #Anxiety Discharge Disposition: AMA SNF Discharge Will this Physician continue t: No Discharge Statement: "Patient was advised to return to the ER or call 911 if any headaches, dizziness, shortness of breath, chest pain, abdominal pain, bleeding, fevers, or worsening of medical condition. Patient was counseled about treatment plan, medications, possible side effects, patientverbalized understanding. All questions were answered to the best of my ability. This discharge took greater then 30 minutes in planning, reviewing documentation, counseling the patient, and discussing with other team members." ASSESSMENT ASSESSMENT Assessment Date of Service: Jul 17, 2024 Billing Provider: YRN JIN MD Common Visit Codes: [id number]/[id number] DISCH DAY >30min KATERINA REYNAGA RESIDENT Jul 18, 2024 06:54 YRN JIN MD Jul 19, 2024 08:54
== END 2024-07-17 22:06 | disposition left against medical advice (07) | DRG 201 ==
LOC: EDBD 22:17 → ER 22:17 → OVERFLOW 23:51
PROVIDERS: ADMIT Student in an Organized Health Care Education/Training Program; ATTEND Student in an Organized Health Care Education/Training Program
DX: I49.9 Cardiac arrhythmia, unspecified (principal); I21.A1 Myocardial infarction type 2; K76.0 Fatty (change of) liver, not elsewhere classified; I16.1 Hypertensive emergency; E66.9 Obesity, unspecified; Z53.29 Procedure and treatment not carried out because of patient's decision for other reasons; E87.6 Hypokalemia; F41.9 Anxiety disorder, unspecified; I10 Essential (primary) hypertension; N39.0 Urinary tract infection, site not specified; Z82.49 Family history of ischemic heart disease and other diseases of the circulatory system; Z79.899 Other long term (current) drug therapy
CPT/HCPCS: 36415; 71045; 80053; 80307; 81001; 81025; 83605; 83735; 83880; 84443; 84484; 85025; 85379; 87040; 93005; 93306; 96361; 96374; 99291; G0378; J3490

== ENCOUNTER 2024-10-19 20:13 | Inpatient (IN) | payer OTHER ==
[~2024-10-19] VITALS: Ht 165.1 cm; Wt 99.0 kg
--- NOTE | 2024-10-19 20:31 | ED.PDOC ---
HPI Comments 34-year-old female came to ER for chest pains. Patient states she has been experiencing left-sided chest pains this morning. Chest pains will radiate the left shoulder and down her left arm, 5/10 intensity, associated with dizziness, shortness of breath and palpitations. Persistence prompted patient to come to the emergency room. Similar chest pain last June 2024. Diagnosed with hypertensive urgency and NSTEMI. Patient however signed AMA as she decided to go to [facility] instead and she states cardiac work up including possible cardiac catheterization, done to her showed negative results then. Blood pressure upon arrival was 193/112 mm Hg Chief Complaint: Chest Pain Time Seen by MD: 20:30 Reviewed Notes: Nurses Notes Allergies: Coded Allergies: NO KNOWN ALLERGIES (Unverified , 07/17/16) Information Source: Patient Mode of Arrival: Ambulatory Severity: Moderate Timing: Hours Duration: Intermittent Prehospital treatment: None Location: Chest (L) Radiation: Shoulder (L), Arm (L) Quality: Other (Palpitations) Onset: With Light Exertion Cardiac Risk Factors: HTN Associated Signs and Symptoms: SOB, Palpitations Review of Systems REVIEW OF SYSTEMS: No fever, no chills, or fatigue HEENT: No sore throat, no earache, no congestion, no neck pain. Cardiac: (+) chest pain. (+) palpitations. Lungs: (+) shortness of breath, no cough. GI: No nausea, no vomiting, no diarrhea, no constipation, no abdominal pain : No dysuria, frequency, or urgency. No hematuria. Musculoskeletal: No joint pain , no joint swelling, no extremity edema. Skin: No rash, no itching. Neuro: No headache, no dizziness, no weakness Vital Signs Vital Signs Date Time Temp Pulse Resp B/P (MAP) Pulse Ox O2 Delivery O2 Flow Rate FiO2 10/19/24 21:36 88 182/122 10/19/24 20:26 99.2 20 100 99.2 Physical Exam General: Awake, alert and oriented. No acute distress. Skin: Skin in warm, dry and intact. Appropriate color for ethnicity. Nailbeds pink with no cyanosis. HEENT: The head is normocephalic and atraumatic. Conjunctivae are clear without exudates or hemorrhage. Sclera is non-icteric. EOM are intact. No signs of nystagmus. Eyelids are normal in appearance without swelling or lesions. Oral mucosa is pink and moist Neck: The neck is supple with normal range of motion. No JVD. Cardiac: Heart rate and rhythm are normal. No murmurs, gallops, or rubs are auscultated. Respiratory: No signs of respiratory distress. Lung sounds are clear in all lobes bilaterally without rales, rhonchi, or wheezes. Abdominal: Abdomen is soft, non-tender without distention. Bowel sounds are present and normoactive in all four quadrants. Extremities: Upper and lower extremities are atraumatic in appearance without deformity or edema. Neurological: The patient is awake, alert and oriented to person, place, and time with normal speech. Speech is clear. There is no facial asymmetry. Psychiatric: Appropriate mood and affect. Good judgement and insight. 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 Was a procedure done?: No CP Differential Dx Differential Diagnosis: Angina, Anxiety / Panic Attack, Hyperthyroidism, Hyperventilation, UT Differential Diagnosis: Angina, Chest Wall Pain, Costochondritis, Esophageal reflux/spasm, Gastritis, Myocardial Infarction, Pneumonia, Other X-Ray, Labs, Meds, VS Vital Signs Date Time Temp Pulse Resp B/P (MAP) Pulse Ox O2 Delivery O2 Flow Rate FiO2 10/19/24 21:36 88 182/122 10/19/24 20:31 106 10/19/24 20:26 99.2 110 20 193/112 (139) 100 99.2 Lab Test 10/19/24 21:17 10/19/24 20:29 Range/Units Urine Color Colorless Yellow Urine Clarity Clear Clear Urine pH 5.5 5.0-9.0 Urine Specific [place] 1.009 1.001-1.035 Urine Protein Negative Negative Urine Ketones Negative Negative Urine Blood 3+ H Negative /uL Urine Nitrite Negative Negative Urine Bilirubin Negative Negative Urine Urobilinogen Normal Negative mg/dL Urine Leukocyte Esterase Negative Negative /uL Urine RBC 18 0 - 4 /hpf Urine Microscopic WBC 2 0-5 /HPF Urine Squamous Epithelial Cells Few <5 /hpf Urine Bacteria None seen None Seen /hpf Urine Glucose Normal Normal mg/dL Creatine Kinase 57 34-145 U/L Troponin I High Sensitivity < 3 L < 3 L </=34 ng/L Beta HCG, Quantitative 0.7 L 1.5-4.2 mIU/mL White Blood Count 12.5 H 4.4-10.8 10^3/uL Red Blood Count 4.37 4.0-5.20 10^6/uL Hemoglobin 12.3 12.2-16.2 g/dL Hematocrit 35.4 L 36.0-46.0 % Mean Corpuscular Volume 81.0 80.0-100.0 fL Mean Corpuscular Hemoglobin 28.1 28.0-32.0 pg Mean Corpuscular Hemoglobin Concent 34.6 32.0-36.0 g/dL Red Cell Distribution Width 13.8 11.8-14.3 % Platelet Count 256 140-450 10^3/uL Mean Platelet Volume 9.6 6.9-10.8 fL Neutrophils (%) (Auto) 71.1 37.0-80.0 % Lymphocytes (%) (Auto) 22.2 10.0-50.0 % Monocytes (%) (Auto) 4.9 0.0-12.0 % Eosinophils (%) (Auto) 0.7 0.0-7.0 % Basophils (%) (Auto) 1.1 0.0-2.0 % Neutrophils # (Auto) 8.9 H 1.6-8.6 10 ^3/uL Lymphocytes # (Auto) 2.8 0.4-5.4 10 ^3/uL Monocytes # (Auto) 0.6 0-1.3 10 ^3/uL Eosinophils # (Auto) 0.1 0-0.8 10 ^3/uL Basophils # (Auto) 0.1 0-0.2 10 ^3/uL Nucleated Red Blood Cells 0.0 % Erythrocyte Sedimentation Rate 37 H 0-20 mm/hr D-Dimer, Quantitative 1.02 H 0.0-0.49 mg/L FEU Sodium Level 140 136-145 mmol/L Potassium Level 3.5 3.5-5.1 mmol/L Chloride Level 106 98-107 mmol/L Carbon Dioxide Level 24 20-31 mmol/L Anion Gap 10 5-15 Blood Urea Nitrogen 11 9-23 mg/dL Creatinine 0.79 0.550-1.02 mg/dL Glomerular Filtration Rate Calc 101 >90 mL/min BUN/Creatinine Ratio 13.9 10.0-20.0 Serum Glucose 107 H 74-106 mg/dL Hemoglobin A1c 5.4 <5.7 % A1C Calcium Level 10.0 8.7-10.4 mg/dL Total Bilirubin 0.5 0.2-1.0 mg/dL Direct Bilirubin 0.1 <0.3 mg/dL Aspartate Amino Transferase (AST) 55 H <34 U/L Alanine Aminotransferase (ALT) 82 H 7-40 U/L Alkaline Phosphatase 78 46-116 U/L C-Reactive Protein High Sensitivity 2.08 H <1.0 mg/dL B-Type Natriuretic Peptide 51.82 0-100 pg/mL Total Protein 8.3 H 5.7-8.2 g/dL Albumin 4.8 3.2-4.8 g/dL Thyroid Stimulating Hormone (TSH) 1.52 0.55-4.78 uIU/mL Plasma/Serum Blood Alcohol < 3.0 <10 mg/dL Current Medications Medications (Trade) Dose Ordered Sig/Rimma Route Start Time Stop Time Status Last Admin Aspirin 324 mg ONCE ONCE PO 10/19/24 20:30 10/19/24 20:31 DC 10/19/24 21:25 Labetalol HCl (Labetalol HCl) 10 mg ONCE ONCE IV 10/19/24 20:45 10/19/24 20:46 DC 10/19/24 21:36 Time of 1ST Reevaluation: 20:26 Reevaluation 1ST: Unchanged Patient Education/Counseling: Other (Need for admission) Family Education/Counseling: No Family Present SEPSIS Sepsis Screen Physician Orders Electrocardigram (10/19/24 20:17) Electrocardigram (10/19/24 21:17) Electrocardigram (10/19/24 23:17) Chest Xray 1 View (10/19/24 20:23) Saline Lock (10/19/24 21:18) Vital Signs Date Time Temp Pulse Resp B/P (MAP) Pulse Ox O2 Delivery O2 Flow Rate FiO2 10/19/24 21:36 88 182/122 10/19/24 20:31 106 10/19/24 20:26 99.2 110 20 193/112 (139) 100 99.2 Laboratory Tests Test 10/19/24 20:29 White Blood Count 12.5 10^3/uL (4.4-10.8) H Medications Medications Dose Ordered Sig/Rimma Route Start Time Stop Time Status Last Admin Dose Admin Aspirin 324 mg ONCE ONCE PO 10/19/24 20:30 10/19/24 20:31 DC 10/19/24 21:25 Labetalol HCl 10 mg ONCE ONCE IV 10/19/24 20:45 10/19/24 20:46 DC 10/19/24 21:36 Departure 1 Departure Time of Disposition: 22:01 Impression: Primary Impression: Chest pain Additional Impression: Hypertensive urgency Disposition: ADMITTED INPATIENT Condition: Stable Comments IV labetalol administered in the ED Patient admitted to hospitalist service for further treatment, evaluation and monitoring. Extensive evaluation was performed in attempt to identify or rule out: (See differential diagnosis section) The following tests were ordered, and results were reviewed by me and discussed with patient: (See diagnostic results section) The following test were independently interpreted by me: EKG I reviewed and agreed with the following test results read by other providers: Chest x-ray I reviewed the following notes from the pt's past medical encounters: N/A Additional information was gathered from interviewing the following independent historians: N/A Discussion of management or test interpretation with external physician/other qualified health child care development specialist: N/A Addressed an acute or chronic illness that poses a threat to life or bodily function: Hypertensive urgency Decision regarding hospitalization or escalation of hospital level of care: Risk and benefits of admission for further treatment of patient's condition was considered. Due to patient's current clinical condition, high risk of decline and poor outcome if discharged and need for further inpatient management and monitoring, patient will be admitted to the hospital. Discussed with patient. Drug therapy requiring intensive monitoring for toxicity: IV labetalol Parenteral controlled substances: N/A Decision regarding elective major surgery with identified patient or procedure risk factors: N/A Decision regarding emergency major surgery: N/A Decision not to resuscitate or to de-escalate care because of poor prognosis: N/A Diagnosis or treatment significantly limited by social determinants of health: N/A Critical Care Note Critical Care Time?: No Stability Stability form required: No Heart Score Heart Score: Heart Score Response (Comments) Value History Moderate Suspicious 1 EKG Repolarization Disturb 1 Age <45 0 Risk Factors 1 or 2 risk factors 1 Troponin Normal limit 0 Total 3 I personally scribed for ANNE EAST MD ([email or web address]) on 10/19/24 at 20:31. Electronically submitted by Capo Lozano ([employer]). I personally scribed for ANNE EAST MD ([email or web address]) on 10/19/24 at 20:38. Electronically submitted by Capo Lozano ([employer]). ANNE EAST MD Oct 19, 2024 20:31
[2024-10-19 20:41] LABS: Basophils # (auto) 0.1 10 ^3/uL (0-0.2); Basophils % (auto) 1.1 % (0.0-2.0); Eosinophils # (auto) 0.1 10 ^3/uL (0-0.8); Eosinophils % (auto) 0.7 % (0.0-7.0); Hematocrit 35.4 % (36.0-46.0); Hemoglobin 12.3 g/dL (12.2-16.2); Lymphocytes # (auto) 2.8 10 ^3/uL (0.4-5.4); Lymphocytes % (auto) 22.2 % (10.0-50.0); Mean Corpuscular Hemoglobin 28.1 pg (28.0-32.0); Mean Corpuscular Hgb Conc. 34.6 g/dL (32.0-36.0); Monocytes # (auto) 0.6 10 ^3/uL (0-1.3); Monocytes % (auto) 4.9 % (0.0-12.0); Neutrophils # (auto) 8.9 10 ^3/uL (1.6-8.6); Neutrophils % (auto) 71.1 % (37.0-80.0); Platelet Count (auto) 256 10^3/uL (140-450); Red Blood Cells 4.37 10^6/uL (4.0-5.20); Red Cell Distribution Width 13.8 % (11.8-14.3); White Blood Cell 12.5 10^3/uL (4.4-10.8)
[2024-10-19 20:44] LABS: Chloride 106 mmol/L (98-107); Potassium 3.5 mmol/L (3.5-5.1); Sodium 140 mmol/L (136-145)
[2024-10-19 20:45] LABS: Anion Gap 10 (5-15); Carbon Dioxide 24 mmol/L (20-31)
[2024-10-19 20:50] LABS: BUN/Creatinine Ratio 13.9 (10.0-20.0); Blood Urea Nitrogen 11 mg/dL (9-23)
[2024-10-19 20:53] LABS: Glucose 107 mg/dL (74-106)
--- NOTE | 2024-10-19 21:18 | DVH ---
CHEST RADIOGRAPH Indication: Chest pain, palpitation Technique: Single frontal view of the chest was obtained Comparison: XY CHEST PORTABLE on DOS: 07/16/24 FINDINGS: Lines and Tubes: None Lungs: No focal consolidation. Pleura: No effusion. No pneumothorax. Cardiomediastinal contours: Unremarkable Bones: No acute osseous abnormality. IMPRESSION: 1. No acute cardiopulmonary disease. HS:Y
[2024-10-19 21:24] LABS: Urine Bacteria None Seen /hpf (None Seen)
[2024-10-19] MEDS: ASPirin 81 mg TAB PO ONE (21:25)
[2024-10-19 21:33] LABS: Urine Blood 3+ /uL (Negative); Urine Clarity Clear (Clear); Urine Color Colorless (Yellow); Urine Protein, UAD Negative (Negative); Urine Specific Gravity 1.009 (1.001-1.035); Urine Squamous Epithelial Cell FEW /hpf (<5); Urine Urobilinogen Normal (Negative); Urine WBC 2 /HPF (0-5); Urine pH 5.5 (5.0-9.0)
[2024-10-19] MEDS: LABETALOL HCL 20 MG/4 ML VL IV ONE (21:36)
[2024-10-19] MEDS ORDERED: ONDANSETRON HCL 4 MG/2 ML VIAL IV PRN (22:15)
[2024-10-19] MEDS ORDERED: MORPHINE SULFATE INJ 2 MG/ml SYRG IV PRN ×2 (22:15)
[2024-10-19] MEDS ORDERED: ACETAMINOPHEN 325 MG TAB PO PRN (22:15)
[2024-10-19] MEDS ORDERED: LABETALOL HCL 20 MG/4 ML VL IV PRN (22:15)
[2024-10-19] MEDS ORDERED: NITROGLYCERIN 0.4 MG SL TAB SL PRN (22:15)
[2024-10-19] MEDS ORDERED: DOCUSATE SOD 100 MG CAP PO PRN (22:15)
[2024-10-19 23:23] LABS: Albumin 4.8 g/dL (3.2-4.8); Alkaline Phosphatase 78 U/L (46-116); Bilirubin, Direct 0.1 mg/dL (<0.3); Bilirubin, Total 0.5 mg/dL (0.2-1.0)
[2024-10-19 23:40] LABS: Alanine Aminotransferase 82 U/L (7-40); Aspartate Aminotransferase 55 U/L (<34); Blood Alcohol < 3.0 mg/dL (<10); CRP High Sensitivity 2.08 mg/dL (<1.0); Total Protein 8.3 g/dL (5.7-8.2)
[2024-10-19] MEDS ORDERED: MAGNESIUM SULFATE 1GM/100ML 100 ML IV ONE (23:45)
[2024-10-19 23:49] LABS: COVID19 ANTIGEN SOFIA FIA NEGATIVE (NEGATIVE); Rapid Influenza A Negative (Negative); Rapid Influenza B Negative (Negative)
[2024-10-20 00:06] LABS: Erythrocyte Sedimentation Rate 37 mm/hr (0-20)
--- NOTE | 2024-10-20 00:13 | DVHHPRES ---
History of Present Illness Resident Creating Document: MARIVEL GRAJEDA RESIDENT History of Present Illness Ms. Watson, a 34-year-old female With past medical history of obesity, hypertension, anxiety disorder not on medication, recurrent hypertensive urgency,bilateral tubal ligation and family risk factor of premature coronary artery disease presented to the ER with intermittent, moderate-intensity (5/10) left-sided chest pain radiating to her left shoulder and arm, accompanied by dizziness, shortness of breath, and palpitations, which began earlier that morning and persisted despite rest. The pain was triggered by light exertion and prompted her to seek emergency care. She has a history of hypertension and experienced a similar episode in June 2024, when she was diagnosed with hypertensive urgency and NSTEMI but left against medical advice to seek care at another hospital, where she reports a negative cardiac workup. On arrival, her blood pressure was markedly elevated at 193/112 mm Hg. She had cardiac cath done in [place] it was negative. 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 Smoke: No ALCOHOL: rare Drugs: None Lives: with Family Domestic Violence: Neg Review of Systems Constitutional: No: Fever, Chills, Sweats, Weakness, Malaise, Other Eyes: No: Pain, Vision change, Conjunctivae inflammation, Eyelid inflammation, Other, Redness ENT: No: Ear pain, Ear discharge, Nose pain, Nose discharge, Nose congestion, Mouth pain, Mouth swelling, Throat pain, Throat swelling, Other Respiratory: Pleuritic Pain; No: Cough, Dry, Shortness of breath, SOB with excertion, Wheezing, Hemoptysis, Sputum, Wheezing, Other Cardiovascular: Chest Pain, Palpitations; No: Orthopnea, Paroxysmal Noc. Dyspnea, Edema, Lt Headedness, Other Gastrointestinal: No: Nausea, Vomiting, Abdominal Pain, Diarrhea, Constipation, Melena, Hematochezia, Other Genitourinary: No Dysuria, No Frequency, No Incontinence, No Hematuria, No Retention, No Other Musculoskeletal: No: other, neck pain, shoulder pain, arm pain, back pain, hand pain, leg pain, foot pain Skin: No: Rash, Lesions, Jaundice, Bruising, Other Neurological: No: Weakness, Numbness, Incoordination, Change in speech, Confusion, Seizures, Other Allergies: Coded Allergies: NO KNOWN ALLERGIES (Unverified , 07/17/16) Medications Current Medications Medications Dose Ordered Sig/Rimma Route Start Time Stop Time Status Last Admin Dose Admin Sodium Chloride 1,000 ml @ 120 mls/hr Q8H20M IV 10/19/24 22:15 Ondansetron HCl 4 mg Q4HP PRN IV 10/19/24 22:15 Docusate Sodium 100 mg BIDPRN PRN PO 10/19/24 22:15 Enoxaparin Sodium 40 mg DAILY SC 10/20/24 10:00 Acetaminophen 650 mg Q6HP PRN PO 10/19/24 22:15 Morphine Sulfate 2 mg Q4HPRN PRN IV 10/19/24 22:15 Nitroglycerin 0.4 mg Q5MINP PRN SL 10/19/24 22:15 Morphine Sulfate 2 mg Q30M PRN IV 10/19/24 22:15 Labetalol HCl 10 mg Q2HPRN PRN IV 10/19/24 22:15 Amlodipine Besylate 10 mg DAILY PO 10/20/24 10:00 Pantoprazole Sodium 40 mg DAILY IV 10/20/24 10:00 UNV Exam Vital Signs Vital Signs Date Time Temp Pulse Resp B/P (MAP) Pulse Ox O2 Delivery O2 Flow Rate FiO2 10/19/24 21:36 88 182/122 10/19/24 20:26 99.2 20 100 99.2 General Appearance: Alert, Oriented X3, Cooperative, No acute distress HEENT: Atraumatic, PERRLA, EOMI, Mucous membr. moist/pink Respiratory: Clear to auscultation, Normal air movement, Other (local chest tenderness left parasternal area ) Cardiovascular: Regular rate, Normal S1, Normal S2, No murmurs Abdominal: Normal bowel sounds, Soft, No tenderness, No hepatospenomegaly, No masses Extremities: No clubbing, No cyanosis, No edema, Normal pulses, No tenderness/swelling Skin: No rashes, No breakdown, No significant lesion Neuro: Normal gait, Normal speech, Strength at 5/5 X4 ext, Normal tone, Sensation intact, Cranial nerves 3-12 NL, Reflexes 2+ Psych/Mental Status: Mental status NL, Mood NL, Other (denies homicidal or suicidal ideation. LENIN score of 8 at bedside. ) Labs/Xrays Labs Test 10/19/24 23:16 10/19/24 23:06 10/19/24 21:17 10/19/24 20:29 Range/Units Urine Color Colorless Yellow Urine Clarity Clear Clear Urine pH 5.5 5.0-9.0 Urine Specific [place] 1.009 1.001-1.035 Urine Protein Negative Negative Urine Ketones Negative Negative Urine Blood 3+ H Negative /uL Urine Nitrite Negative Negative Urine Bilirubin Negative Negative Urine Urobilinogen Normal Negative mg/dL Urine Leukocyte Esterase Negative Negative /uL Urine RBC 18 0 - 4 /hpf Urine Microscopic WBC 2 0-5 /HPF Urine Squamous Epithelial Cells Few <5 /hpf Urine Bacteria None seen None Seen /hpf Urine Glucose Normal Normal mg/dL White Blood Count 12.5 H 4.4-10.8 10^3/uL Red Blood Count 4.37 4.0-5.20 10^6/uL Hemoglobin 12.3 12.2-16.2 g/dL Hematocrit 35.4 L 36.0-46.0 % Mean Corpuscular Volume 81.0 80.0-100.0 fL Mean Corpuscular Hemoglobin 28.1 28.0-32.0 pg Mean Corpuscular Hemoglobin Concent 34.6 32.0-36.0 g/dL Red Cell Distribution Width 13.8 11.8-14.3 % Platelet Count 256 140-450 10^3/uL Mean Platelet Volume 9.6 6.9-10.8 fL Neutrophils (%) (Auto) 71.1 37.0-80.0 % Lymphocytes (%) (Auto) 22.2 10.0-50.0 % Monocytes (%) (Auto) 4.9 0.0-12.0 % Eosinophils (%) (Auto) 0.7 0.0-7.0 % Basophils (%) (Auto) 1.1 0.0-2.0 % Neutrophils # (Auto) 8.9 H 1.6-8.6 10 ^3/uL Lymphocytes # (Auto) 2.8 0.4-5.4 10 ^3/uL Monocytes # (Auto) 0.6 0-1.3 10 ^3/uL Eosinophils # (Auto) 0.1 0-0.8 10 ^3/uL Basophils # (Auto) 0.1 0-0.2 10 ^3/uL Nucleated Red Blood Cells 0.0 % D-Dimer, Quantitative 1.02 H 0.0-0.49 mg/L FEU Sodium Level 140 136-145 mmol/L Potassium Level 3.5 3.5-5.1 mmol/L Chloride Level 106 98-107 mmol/L Carbon Dioxide Level 24 20-31 mmol/L Anion Gap 10 5-15 Blood Urea Nitrogen 11 9-23 mg/dL Creatinine 0.79 0.550-1.02 mg/dL Glomerular Filtration Rate Calc 101 >90 mL/min BUN/Creatinine Ratio 13.9 10.0-20.0 Serum Glucose 107 H 74-106 mg/dL Hemoglobin A1c 5.4 <5.7 % A1C Calcium Level 10.0 8.7-10.4 mg/dL Total Bilirubin 0.5 0.2-1.0 mg/dL Direct Bilirubin 0.1 <0.3 mg/dL Aspartate Amino Transferase (AST) 55 H <34 U/L Alanine Aminotransferase (ALT) 82 H 7-40 U/L Alkaline Phosphatase 78 46-116 U/L C-Reactive Protein High Sensitivity 2.08 H <1.0 mg/dL Total Protein 8.3 H 5.7-8.2 g/dL Albumin 4.8 3.2-4.8 g/dL Plasma/Serum Blood Alcohol < 3.0 <10 mg/dL Assessment/Plan Assessment/Plan # Acute persistent Chest pain, yet to rule out ACS: Recurrent history, cardiac causes to look for, look for extensive workup previously done, underlying anxiety/ psychiatric/ nonadherence causes to check. Urine tox, D-dimer, CRP ESR, respiratory viral panel. Follow up. Telemetry continue. Check for other risk factors apart from obesity like HbA1c, lipid panel.Previously patient was seen in the ER with chief complaints of palpitations and hypertensive urgencies: Diagnostic Cath -ve in [facility], as per patient. Presently on losartan and HCTZ bp not well controlled. previously controlled with amlodipine 10. will restart. # To Rule out Pulmonary Embolism: Persistent chest pain+Tachycardia rebound when off of labetalol. High D dimer. PESI 54, Wells' PE score 1.5 all lower risk. yet sharp stabbing pain since morning is worth checking for PE/ dissection CTA post r/o . # Family history significant with mother with premature coronary artery disease: h/o PCI with stents at 40, rule out familiar hyperlipidemia, check lipoprotein a. # Likely Costochondritis: reproducible chest pain + tenderness, reports also pleuritic chest pain, r/o URI viral causes, # Leukocytosis, neutrophilic predominance, parasternal pain, pleuritic, avoid NSAIDS given HTN, Tylenol as needed with hydration. # Likely SIRS response: >90 HR, WBC > 10 rule out source of infection. # Microscopic hematuria: we will review any possible cause of renal stone or renal colic. Examination unremarkable. Check CK for mimics. # Class 2 obesity: Weight loss counseling done. Diet and AHA advised 150 min/ week moderate intensity exercise suggested. PCP follow up for weight loss counseling suggested. # Hypertensive urgency: Recurrent, type II NSTEMI in past hospitalization, Last echo 07/17/2024, unremarkable, LVEF 65-70%, further workup pending. Low-salt cardiac diet to continue. # Poorly controlled hypertension: On losartan, hydrochlorothiazide (50-12.5mg), (previously carvedilol, amlodipine): reports compliance, since starting the recent regimen not working. home bp in 170s mostly SBP. As per AHA/ ACC guidelines, I will blood pressure 140/ 90 or below. # History of borderline prolonged QTc: previously 478, recheck with the EKG, keep on telemetry, correction of magnesium> 2. Will check with Bezette's correction. Keep Mg>2. # Mild normocytic anemia, H&H stable, transfusion threshold <7 # Prior history of mild transaminitis: Noted 07/16/2024 Repeat hepatic panel. Correct electrolytes as needed. if persistent Liver US. likely steatohepatitis. lifestyle modification and risk of BRADLEY/MASH counseled. # History of poor medical adherence, patient left previously AMA.She mentioned being overwhelmed with 4 kids. # Generalized Anxiety disorder, mild-moderate: presently LENIN-7 score 8, with insomnia. started on SSRI. 20 mg Sertraline daily. counseled regarding side effect. # Acute stress disorder: family and children with busy demanding career, stress management and f/u with therapist might help to curb recurrent ER/ Hospital visit. To discuss with PCP for referral. 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 avoid bzd's. PCP: Yeison Hall MD, with [facility]. Specialist Relevant To Admission: Cardiology, not needed in this hospitalization. Case discussed with Dr. Sam. Code Status: Full Code. Goals of care, discussion needed total 37 minutes bedside with care plan. She agreed to hospitalization in telemetry floor. Plan discussed with: Patient My Orders Orders - MARIVEL GRAJEDA RESIDENT Procedure Category Date Status Time Admit ADMIT 10/19/24 Transmitted 22:14 Allergies TOMASA 10/19/24 In Process 22:14 Code Status CODE 10/19/24 Transmitted 22:14 Sodium Chloride 0.9% PHA 10/19/24 In Process 22:15 Ondansetron Hcl PHA 10/19/24 In Process (Zofran) 22:15 Docusate Sodium PHA 10/19/24 In Process Capsule (Colace 22:15 Enoxaparin Sodium PHA 10/20/24 In Process (Lovenox) 10:00 Complete Blood Count LAB 10/20/24 Verified 04:00 Comprehensive LAB 10/20/24 Verified Metabolic Panel 04:00 Echo 2d Mode Cardiac US 10/19/24 Logged DOP 22:14 Condition: Fair TOMASA 10/19/24 In Process 22:14 Acetaminophen Tablet PHA 10/19/24 In Process (Tylenol Tablet) 22:15 Morphine Sulfate PHA 10/19/24 In Process Injection 22:15 Nitroglycerin PHA 10/19/24 In Process Sublingual (Ntrostat 22:15 Morphine Sulfate PHA 10/19/24 In Process Injection 22:15 Oxygen By Nasal RT 10/19/24 Transmitted Cannula 22:14 Stat Ekg For Chest TOMASA 10/19/24 In Process Pain 22:14 Notify Md Of Changes TOMASA 10/19/24 In Process From Base 22:14 Grommet Man For TOMASA 10/19/24 In Process 24 Hours 22:14 Emergency Dysrhythmia TOMASA 10/19/24 In Process Protocol 22:14 Rhythm Strips Once TOMASA 10/19/24 In Process Every Shift 22:14 Labetalol Hcl PHA 10/19/24 In Process (Labetalol Hcl) 22:15 Amlodipine Tablet PHA 10/20/24 In Process (Norvasc Tablet) 10:00 C-Reactive Protein LAB 10/19/24 In Process 22:48 Erythrocyte LAB 10/19/24 In Process Sedimentation Rate 22:48 Covid19 Antigen Brigette LAB 10/19/24 In Process Rapid Influenza A&B LAB 10/19/24 In Process 22:48 Lipid Panel LAB 10/20/24 Verified 04:00 B-Type Natriuretic LAB 10/19/24 In Process Peptide 22:48 Hepatic Panel LAB 10/19/24 In Process 22:48 Cardiac DIET 10/20/24 Transmitted Diet-2gna,Lofat,Lochol Breakfast Pantoprazole PHA 10/20/24 In Process (Protonix) 10:00 Magnesium Sulfate PHA 10/19/24 In Process 1gm/100ml 23:00 Drug Screen LAB 10/19/24 Logged 22:48 Blood Alcohol LAB 10/19/24 In Process 22:48 Thyroid Stimulating LAB 10/19/24 In Process Hormone 22:54 Fluoxetine Capsule PHA 10/20/24 In Process (Prozac Capsule) 10:00 Communication Order ORDERS 10/19/24 Transmitted 23:19 Date of Service: Oct 19, 2024 Billing Provider: PRECIOUS SAM MD Common Visit Codes: [id number] INP/OBS CARE (HIGH) Secondary Visit Codes: [id number] CARE PLAN 30 MINUTES MARIVEL GRAJEDA RESIDENT Oct 20, 2024 00:13
--- NOTE | 2024-10-20 01:45 | DVH ---
CTA Chest with intravenous contrast INDICATION: Rule out aortic dissection and PE elevated d dimer. COMPARISON: None TECHNIQUE: Multidetector spiral CTA of the chest was performed of the chest with intravenous contrast . PULMONARY ANGIOGRAPHY PROTOCOL was utilized using a bolus-tracking technique centered on the main p ulmonary artery. Axial, coronal and sagittal multiplanar and MIP reformats were performed. Radiation Dose : 1. Chest: CTDI volume is 28.21 mGy. Dose-length product is 2093.05 mGy*cm The dose indicators for CT are the volume Computed Tomography (CT) Dose Index (CTDIvol) and the Dose Length Product (DLP), and are measured in units of mGy and mGy-cm, respectively. These indicators are not patient dose, but values generated from the CT scanner acquisition factors. The report includes radiation exposure data for exposures received during this examination. Findings: Pulmonary artery: No pulmonary embolism. The main pulmonary artery measures 2.7 cm in the ascending thoracic aorta measures 3.2 cm. Lower neck: Normal thyroid. Lungs: No focal consolidation, pleural effusion or pneumothorax. Heart/Vascular Structures: Normal heart size. No pericardial effusion. Lymph Nodes: No adenopathy Musculoskeletal: No acute osseous abnormality. Soft tissues: Normal. Upper abdomen: The liver is enlarged and there is diffuse hepatic steatosis. Limited portions of the upper abdomen are otherwise unremarkable. IMPRESSION: 1. No pulmonary embolism. 2. No acute thoracic finding. 3. Hepatomegaly and hepatic steatosis.
[2024-10-20 04:06] VITALS: BP 161/99; PULSE 75; RESP 18; RESP 20; TEMP 98.7; O2SAT 98
[2024-10-20] MEDS ORDERED: ACET-1304 PO (04:17)
[2024-10-20] MEDS ORDERED: LOSA100T25 PO (04:17)
[2024-10-20] MEDS: IOHEXOL 350 MG/ML 100ML IJ ONE (04:39)
[2024-10-20] MEDS: PANTOPRAZOLE 40 MG/10 ML VIAL INJ IV ONE (04:40)
[2024-10-20] MEDS: amLODIPine BESYLATE 5 MG TAB PO ONE (04:40)
[2024-10-20] MEDS: MAGNESIUM SULFATE 1GM/100ML 100 ML IV ONE (04:40)
[2024-10-20] MEDS: FLUoxetine HCL 20 MG CAP PO ONE (04:41)
[2024-10-20] MEDS: SODIUM CHLORIDE 0.9% 1,000 ML IV SCH (04:51)
[2024-10-20 05:30] LABS: Basophils # (auto) 0.1 10 ^3/uL (0-0.2); Eosinophils # (auto) 0.1 10 ^3/uL (0-0.8); Eosinophils % (auto) 1.4 % (0.0-7.0); Hematocrit 35.6 % (36.0-46.0); Hemoglobin 12.2 g/dL (12.2-16.2); Lymphocytes # (auto) 2.5 10 ^3/uL (0.4-5.4); Lymphocytes % (auto) 24.1 % (10.0-50.0); Mean Corpuscular Hgb Conc. 34.2 g/dL (32.0-36.0); Mean Corpuscular Volume 81.8 fL (80.0-100.0); Monocytes # (auto) 0.5 10 ^3/uL (0-1.3); Neutrophils % (auto) 68.5 % (37.0-80.0); Nucleated Red Blood Cells % 0.1 %; Platelet Count (auto) 243 10^3/uL (140-450); Red Blood Cells 4.35 10^6/uL (4.0-5.20); Red Cell Distribution Width 13.7 % (11.8-14.3); White Blood Cell 10.3 10^3/uL (4.4-10.8)
[2024-10-20 05:47] LABS: Albumin 4.5 g/dL (3.2-4.8); Alkaline Phosphatase 74 U/L (46-116); Anion Gap 12 (5-15); BUN/Creatinine Ratio 12.2 (10.0-20.0); Bilirubin, Total 0.4 mg/dL (0.2-1.0); Blood Urea Nitrogen 10 mg/dL (9-23); Calcium 9.7 mg/dL (8.7-10.4); Carbon Dioxide 22 mmol/L (20-31); Chloride 105 mmol/L (98-107); Cholesterol 189 mg/dL (< 200); Sodium 139 mmol/L (136-145)
[2024-10-20 05:49] LABS: Alanine Aminotransferase 77 U/L (7-40); Aspartate Aminotransferase 47 U/L (<34); Glucose 119 mg/dL (74-106); HDL Cholesterol 36 mg/dL (40-59); LDL Cholesterol 139 mg/dL (< 100); Potassium 3.5 mmol/L (3.5-5.1); Triglycerides 185 mg/dL (< 150)
--- NOTE | 2024-10-20 06:35 | ECG ---
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
[2024-10-20 07:57] VITALS: BP 154/109; PULSE 78; RESP 16; TEMP 97.7; O2SAT 95
[2024-10-20] MEDS ORDERED: PANTOPRAZOLE 40 MG/10 ML VIAL INJ IV SCH (10:00)
[2024-10-20] MEDS ORDERED: FLUoxetine HCL 20 MG CAP PO SCH (10:00)
[2024-10-20] MEDS ORDERED: ENOXAPARIN SOD 40 MG/0.4 ML SYRINGE SC SCH (10:00)
[2024-10-20] MEDS ORDERED: amLODIPine BESYLATE 5 MG TAB PO SCH ×2 (10:00)
--- NOTE | 2024-10-20 13:58 | DVHPN2 ---
Eyes: No Pain, No Vision change, No Conjunctivae inflammation, No Eyelid inflammation, No Other, No Redness ENT: No Ear pain, No Ear discharge, No Nose pain, No Nose discharge, No Nose congestion, No Mouth pain, No Mouth swelling, No Throat pain, No Throat swelling, No Other Cardiovascular: Chest Pain, Palpitations; No Orthopnea, No Paroxysmal Noc. Dyspnea, No Edema, No Lt Headedness, No Other Respiratory: No Cough, No Dry, No Shortness of breath, No SOB with excertion, No Wheezing, No Hemoptysis; Pleuritic Pain; No Sputum, No Other Gastrointestinal: No Nausea, No Vomiting, No Abdominal Pain, No Diarrhea, No Constipation, No Melena, No Hematochezia, No Other Genitourinary: No Dysuria, No Frequency, No Incontinence, No Hematuria, No Retention, No Other Musculoskeletal: No other, No neck pain, No shoulder pain, No arm pain, No back pain, No hand pain, No leg pain, No foot pain Skin: No Rash, No Lesions, No Jaundice, No Bruising, No Other Objective Vitals Vital Signs Date Time Temp Pulse Resp B/P (MAP) Pulse Ox O2 Delivery O2 Flow Rate FiO2 10/20/24 07:57 97.7 78 16 154/109 (124) 95 97.7 10/20/24 04:00 Room Air* 0 21 Intake/Output Intake and Output 10/20/24 07:00 Intake Total 100 ml Balance 100 ml Intake IV Total 100 ml Medications Current Medications Medications Dose Ordered Sig/Rimma Route Start Time Stop Time Status Last Admin Dose Admin Sodium Chloride 1,000 ml @ 120 mls/hr Q8H20M IV 10/19/24 22:15 10/20/24 04:51 120 MLS/HR Ondansetron HCl 4 mg Q4HP PRN IV 10/19/24 22:15 Docusate Sodium 100 mg BIDPRN PRN PO 10/19/24 22:15 Enoxaparin Sodium 40 mg DAILY SC 10/20/24 10:00 Acetaminophen 650 mg Q6HP PRN PO 10/19/24 22:15 Morphine Sulfate 2 mg Q4HPRN PRN IV 10/19/24 22:15 Nitroglycerin 0.4 mg Q5MINP PRN SL 10/19/24 22:15 Morphine Sulfate 2 mg Q30M PRN IV 10/19/24 22:15 Labetalol HCl 10 mg Q2HPRN PRN IV 10/19/24 22:15 Amlodipine Besylate 10 mg DAILY PO 10/20/24 10:00 Pantoprazole Sodium 40 mg DAILY IV 10/20/24 10:00 Fluoxetine HCl 20 mg DAILY PO 10/20/24 10:00 Laboratory Results Laboratory Tests 10/20/24 05:11 Chemistry Test 10/19/24 20:10/20/24 05:11 Albumin 4.8 g/dL (3.2-4.8) 4.5 g/dL (3.2-4.8) Calcium Level 10.0 mg/dL (8.7-10.4) 9.7 mg/dL (8.7-10.4) Total Protein 8.3 g/dL (5.7-8.2) H 8.0 g/dL (5.7-8.2) Coagulation Test 10/19/24 20: D-Dimer, Quantitative 1.02 mg/L FEU (0.0-0.49) H Lipid panel Test 10/20/24 05:11 Cholesterol Level 189 mg/dL (< 200) HDL Cholesterol 36 mg/dL (40-59) L Triglycerides Level 185 mg/dL (< 150) H Cardiac Markers Test 10/19/24: B-Type Natriuretic Peptide 51.82 pg/mL (0-100) LFT Test 10/19/24 20:10/20/24 05:11 Alanine Aminotransferase (ALT) 82 U/L (7-40) H 77 U/L (7-40) H Alkaline Phosphatase 78 U/L (46-116) 74 U/L (46-116) Aspartate Amino Transferase (AST) 55 U/L (<34) H 47 U/L (<34) H Direct Bilirubin 0.1 mg/dL (<0.3) Total Bilirubin 0.5 mg/dL (0.2-1.0) 0.4 mg/dL (0.2-1.0) HgA1c, TSH Test 10/19/24 20: Hemoglobin A1c 5.4 % A1C (<5.7) Thyroid Stimulating Hormone (TSH) 1.52 uIU/mL (0.55-4.78) Urinalysis Test 10/19/24 21:17 Urine Color Colorless (Yellow) Urine Clarity Clear (Clear) Urine pH 5.5 (5.0-9.0) Urine Specific [place] 1.009 (1.001-1.035) Urine Protein Negative (Negative) Urine Ketones Negative (Negative) Urine Blood 3+ /uL (Negative) H Urine Nitrite Negative (Negative) Urine Bilirubin Negative (Negative) Urine Urobilinogen Normal mg/dL (Negative) Urine Leukocyte Esterase Negative /uL (Negative) Urine RBC 18 /hpf (0 - 4) Urine Microscopic WBC 2 /HPF (0-5) Urine Squamous Epithelial Cells Few /hpf (<5) Urine Bacteria None seen /hpf (None Seen) Urine Glucose Normal mg/dL (Normal) AUGUST RODRIGUEZ MD Oct 20, 2024 13:58
--- NOTE | 2024-10-20 14:58 | DVHDS2 ---
Discharge Summary Date of Admission Oct 19, 2024 at 22:14 Date of Discharge: Oct 20, 2024 Admitting Diagnosis # Acute persistent Chest pain, yet to rule out ACS: # To Rule out Pulmonary Embolism: Persistent chest pain+Tachycardia rebound when off of labetalol. High D dimer. PESI 54, Wells' PE score 1.5 all lower risk. yet sharp stabbing pain since morning is worth checking for PE/ dissection CTA post r/o . # Family history significant with mother with premature coronary artery disease # Likely Costochondritis # Leukocytosis # Likely SIRS response. # Microscopic hematuria # Class 2 obesity # Hypertensive urgency. # Poorly controlled hypertension # History of borderline prolonged QTc # Mild normocytic anemia, H&H stable # Prior history of mild transaminitis # History of poor medical adherence, patient left previously AMA.She mentioned being overwhelmed with 4 kids. # Generalized Anxiety disorder, # Acute stress disorder: family and children with busy demanding career, stress management and f/u with therapist might help to curb recurrent ER/ Hospital visit. To discuss with PCP for referral. # Insomnia Labs/Diagnostic Data: Laboratory Results Test 10/20/24 05:11 10/19/24 23:16 10/19/24 23:06 10/19/24 21:17 White Blood Count 10.3 10^3/uL (4.4-10.8) Red Blood Count 4.35 10^6/uL (4.0-5.20) Hemoglobin 12.2 g/dL (12.2-16.2) Hematocrit 35.6 % (36.0-46.0) Mean Corpuscular Volume 81.8 fL (80.0-100.0) Mean Corpuscular Hemoglobin 28.0 pg (28.0-32.0) Mean Corpuscular Hemoglobin Concent 34.2 g/dL (32.0-36.0) Red Cell Distribution Width 13.7 % (11.8-14.3) Platelet Count 243 10^3/uL (140-450) Mean Platelet Volume 9.6 fL (6.9-10.8) Neutrophils (%) (Auto) 68.5 % (37.0-80.0) Lymphocytes (%) (Auto) 24.1 % (10.0-50.0) Monocytes (%) (Auto) 5.0 % (0.0-12.0) Eosinophils (%) (Auto) 1.4 % (0.0-7.0) Basophils (%) (Auto) 1.0 % (0.0-2.0) Neutrophils # (Auto) 7.0 10 ^3/uL (1.6-8.6) Lymphocytes # (Auto) 2.5 10 ^3/uL (0.4-5.4) Monocytes # (Auto) 0.5 10 ^3/uL (0-1.3) Eosinophils # (Auto) 0.1 10 ^3/uL (0-0.8) Basophils # (Auto) 0.1 10 ^3/uL (0-0.2) Nucleated Red Blood Cells 0.1 % Sodium Level 139 mmol/L (136-145) Potassium Level 3.5 mmol/L (3.5-5.1) Chloride Level 105 mmol/L (98-107) Carbon Dioxide Level 22 mmol/L (20-31) Anion Gap 12 (5-15) Blood Urea Nitrogen 10 mg/dL (9-23) Creatinine 0.82 mg/dL (0.550-1.02) Glomerular Filtration Rate Calc 96 mL/min (>90) BUN/Creatinine Ratio 12.2 (10.0-20.0) Serum Glucose 119 mg/dL (74-106) Calcium Level 9.7 mg/dL (8.7-10.4) Total Bilirubin 0.4 mg/dL (0.2-1.0) Aspartate Amino Transferase (AST) 47 U/L (<34) Alanine Aminotransferase (ALT) 77 U/L (7-40) Alkaline Phosphatase 74 U/L (46-116) Total Protein 8.0 g/dL (5.7-8.2) Albumin 4.5 g/dL (3.2-4.8) Triglycerides Level 185 mg/dL (< 150) Cholesterol Level 189 mg/dL (< 200) LDL Cholesterol 139 mg/dL (< 100) HDL Cholesterol 36 mg/dL (40-59) Troponin I High Sensitivity < 3 ng/L (</=34) Influenza Type A Antigen Negative (Negative) Influenza Type B Antigen Negative (Negative) SARS-CoV-2 Antigen (Rapid) Negative (NEGATIVE) Urine Color Colorless (Yellow) Urine Clarity Clear (Clear) Urine pH 5.5 (5.0-9.0) Urine Specific [place] 1.009 (1.001-1.035) Urine Protein Negative (Negative) Urine Ketones Negative (Negative) Urine Blood 3+ /uL (Negative) Urine Nitrite Negative (Negative) Urine Bilirubin Negative (Negative) Urine Urobilinogen Normal mg/dL (Negative) Urine Leukocyte Esterase Negative /uL (Negative) Urine RBC 18 /hpf (0 - 4) Urine Microscopic WBC 2 /HPF (0-5) Urine Squamous Epithelial Cells Few /hpf (<5) Urine Bacteria None seen /hpf (None Seen) Urine Glucose Normal mg/dL (Normal) Creatine Kinase 57 U/L (34-145) Beta HCG, Quantitative 0.7 mIU/mL (1.5-4.2) Test 10/19/24 20:29 Erythrocyte Sedimentation Rate 37 mm/hr (0-20) D-Dimer, Quantitative 1.02 mg/L FEU (0.0-0.49) Hemoglobin A1c 5.4 % A1C (<5.7) Direct Bilirubin 0.1 mg/dL (<0.3) C-Reactive Protein High Sensitivity 2.08 mg/dL (<1.0) B-Type Natriuretic Peptide 51.82 pg/mL (0-100) Thyroid Stimulating Hormone (TSH) 1.52 uIU/mL (0.55-4.78) Plasma/Serum Blood Alcohol < 3.0 mg/dL (<10) Other Laboratory Tests 10/20/24 05:11 Brief Hx & Hospital Course: This is a 34 years old female with past medical history of obesity, hypertension, anxiety, recurrent hypertensive urgency, premature coronary artery disease come to emergency department because of left-sided chest pain that radiates to her left shoulder company with dizziness, shortness for breath and heart palpitation. Blood pressure in the ER was 193/112. She apparently had per cardiac catheterization done in [facility] recently in his was negative. The patient was admitted in the process of working for non ST-elevation IA however she eloped from the emergency department. I did not have a chance to see her. Condition at Discharge: Guarded Final Diagnosis/Problems List # Acute persistent Chest pain, yet to rule out ACS: # To Rule out Pulmonary Embolism: Persistent chest pain+Tachycardia rebound when off of labetalol. High D dimer. PESI 54, Wells' PE score 1.5 all lower risk. yet sharp stabbing pain since morning is worth checking for PE/ dissection CTA post r/o . # Family history significant with mother with premature coronary artery disease # Likely Costochondritis # Leukocytosis # Likely SIRS response. # Microscopic hematuria # Class 2 obesity # Hypertensive urgency. # Poorly controlled hypertension # History of borderline prolonged QTc # Mild normocytic anemia, H&H stable # Prior history of mild transaminitis # History of poor medical adherence, patient left previously AMA.She mentioned being overwhelmed with 4 kids. # Generalized Anxiety disorder, # Acute stress disorder: family and children with busy demanding career, stress management and f/u with therapist might help to curb recurrent ER/ Hospital visit. To discuss with PCP for referral. # Insomnia Discharge Disposition: Eloped Discharge Statement: "Patient was advised to return to the ER or call 911 if any headaches, dizziness, shortness of breath, chest pain, abdominal pain, bleeding, fevers, or worsening of medical condition. Patient was counseled about treatment plan, medications, possible side effects, patientverbalized understanding. All questions were answered to the best of my ability. This discharge took greater then 30 minutes in planning, reviewing documentation, counseling the patient, and discussing with other team members." ASSESSMENT ASSESSMENT Assessment Date of Service: Oct 20, 2024 Billing Provider: AUGUST RODRIGUEZ MD Common Visit Codes: NOT BILLABLE AUGUST RODRIGUEZ MD Oct 20, 2024 14:58
--- NOTE | 2024-10-22 12:25 | ECG ---
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
--- NOTE | 2024-10-22 12:26 | ECG ---
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
--- NOTE | 2024-10-23 14:37 | ECG ---
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
== END 2024-10-20 12:07 | disposition left against medical advice (07) | DRG 199 ==
LOC: ER 20:13 → OVERFLOW 22:14
PROVIDERS: ATTEND Emergency Medicine
DX: I16.0 Hypertensive urgency (principal); I24.9 Acute ischemic heart disease, unspecified; R65.10 Systemic inflammatory response syndrome (SIRS) of non-infectious origin without acute organ dysfunction; M94.0 Chondrocostal junction syndrome [Tietze]; D72.829 Elevated white blood cell count, unspecified; Z20.822 Contact with and (suspected) exposure to COVID-19; E66.812 Obesity, class 2; Z68.36 Body mass index [BMI] 36.0-36.9, adult; R31.29 Other microscopic hematuria; I10 Essential (primary) hypertension; J06.9 Acute upper respiratory infection, unspecified; G47.00 Insomnia, unspecified; F43.0 Acute stress reaction; F41.1 Generalized anxiety disorder; D64.9 Anemia, unspecified; Z82.49 Family history of ischemic heart disease and other diseases of the circulatory system
CPT/HCPCS: 36415; 71045; 71275; 80048; 80053; 80061; 80076; 80320; 81001; 82550; 83036; 83880; 84443; 84484; 84702; 85025; 85379; 85652; 86141; 87426; 87804; 93005; 96374; G0378; J2470